=== PATIENT | male | born 1960 | race African-American/Black ===

== ENCOUNTER 2022-11-13 00:14 | Emergency (ER) | payer SELFPAY ==
[2022-11-13] VITALS (18 sets, daily range): BP systolic 101–123; BP diastolic 69–83; PULSE 59–73; RESP 13–25; TEMP 36.5; O2SAT 97–100
--- NOTE | ~2022-11-13 | XR_ITS ---
EXAMINATION: XR chest 2V DATE: 11/13/2022 02:16 INDICATION: Chest tightness and cough TECHNIQUE: Frontal and lateral views of the chest are obtained COMPARISON: None available FINDINGS: Cardiomegaly is noted. There are minimal airspace opacities of the right lung base. No pleu ral effusion or pneumothorax. Median sternotomy wires and mediastinal surgical clips are seen, likely from prior coronary artery bypass grafting. IMPRESSION: 1. Minimal right basilar airspace opacity, consistent with atelectasis versus pneumonia. 2. Cardiomegaly. Reviewed, dictated and finalized at location A. IMPRESSION: 1. Minimal right basilar airspace opacity, consistent with atelectasis versus p neumonia. 2. Cardiomegaly.
--- NOTE | 2022-11-13 01:44 | ECG_ITS ---
Measurements Intervals [place] Rate: 70 P: 51 OH: 245 QRS: 50 QRSD: 86 T: 105 QT: 412 QTc: 447 Interpretive Statements SINUS RHYTHM WITH FIRST DEGREE AV BLOCK RSR' IN V1 OR V2, PROBABLY NORMAL VARIANT LOW QRS VOLTAGE IN LIMB LEADS MINIMAL Q WAVES- INFERIOR LEADS BORDERLINE ST-T WAVE ABNORMALITY- HIGH LATERAL LEADS ABNORMAL ECG NO PREVIOUS ECG AVAILABLE FOR COMPARISON Electronically Signed On 11-13-2022 7:45:11 CDT by Allan Chamorro D.O.
[2022-11-13 02:08] LABS: Basophils Absolute Auto 0.1 K/mm3 (0.0-0.1); Basophils Percent Auto 0.5 % (0.2-1.2); Eosinophils Absolute Auto 0.6 K/mm3 (0-0.3); Eosinophils Percent Auto 6.1 % (0-4.4); Hematocrit 41.1 % (42.0-52.0); Hemoglobin 13.7 g/dL (14.0-18.0); Immature Granulocyte Absolute 0.05 K/mm3 (0.00-0.031); Immature Granulocyte Percent A 0.5 % (0-0.5); Lymphocytes Absolute Auto 2.16 K/mm3 (0.9-3.2); Lymphocytes Percent Auto 21.7 % (18.3-44.2); Mean Corpuscular HGB Conc 33.3 g/dl (32-36); Mean Corpuscular Hemoglobin 30.9 pg (26-34); Mean Corpuscular Volume 92.8 fl (80-100); Mean Platelet Volume 9.6 fl (7.4-10.4); Monocytes Absolute Auto 1.1 K/mm3 (0.1-0.6); Monocytes Percent Auto 10.6 % (2.6-8.5); Neutrophils Percent Auto 60.6 % (45.5-73.1); Platelet Count Result 216 k/mm3 (150-375); Red Blood Count 4.43 M/mm3 (4.6-6.20); Red Cell Distribution Width 13.6 % (11.5-14.5)
[2022-11-13 02:14] LABS: INR 1.1; Prothrombin Time 14.2 Seconds (11.1-14.7)
[2022-11-13 02:15] LABS: Partial Thromboplastin Time 35.6 SECONDS (22.3-36.8)
[2022-11-13] MEDS: BENZONATATE 100 MG CAPSULE 200 MG PO (02:24)
[2022-11-13] MEDS: ALBUTEROL SULFATE NEB 2.5 MG/3 ML INH INHALATION (02:50)
[2022-11-13] MEDS: IPRATROPIUM BR 0.02% INH SOLN 0.5 MG/2.5 ML VIAL INHALATION (02:51)
[2022-11-13 02:55] LABS: Influenza A QL RT-PCR Negative (Negative); Influenza B QL RT-PCR Negative (Negative); SARS-CoV-2 RNA PCR Negative
[2022-11-13 03:06] LABS: Alanine Aminotransferase 40 U/L (6-50); Albumin Level 3.8 g/dL (3.5-5.1); Alkaline Phosphatase 76 U/L (38-126); Anion Gap 6 mmol/L (8-16); Aspartate Amino Transferase 34 U/L (17-59); Bilirubin,Total 0.3 mg/dL (0.2-1.3); Blood Urea Nitrogen 22 mg/dL (9-20); Calcium 8.4 mg/dL (8.4-10.2); Carbon Dioxide 28 mmol/L (22-30); Chloride 102 mmol/L (98-107); Estimated CRCL calculation 82 ml/min; Estimated Glomerular Filt Rate > 60; Glucose 111 mg/dL (65-110); Potassium 3.9 mmol/L (3.4-5.0); Sodium 136 mmol/L (137-145)
[2022-11-13 03:18] LABS: NT Pro B Type Natriuretic Pept < 20 pg/mL (19.9-100); Troponin I < 0.012 ng/mL (0.000-0.034)
[2022-11-13 03:28] LABS: Strep Group A RT-PCR NOT DETECTED (Negative)
--- NOTE | 2022-11-13 03:48 | ED.GENADULT ---
HPI - General Adult General Chief complaint: Upper Respiratory Infection Stated complaint: cough, headache Time Seen by Provider: 11/13/22 02:01 History of Present Illness HPI narrative: Patient 62-year-old gentleman who presents the emergency department with chief complaint of cough. Patient reports that since yesterday he has had a cough that has been productive of sputum. Patient states been mostly clear patient reports that he has not been able to improve his symptoms with [id number] Coricidin HBP patient states that has had no fever patient reports no chest pain Related Data Allergies Allergy/AdvReac Type Severity Reaction Status Date / Time hydrochlorothiazide Allergy Rash Verified 11/13/22 01:42 Review of Systems Review of Systems: A 10 system review of systems was completed on the patient and is negative except for what is stated in the HPI. Nursing and ancillary documentation was reviewed. Exam Narrative: GENERAL: Well-appearing, well-nourished, and in no acute distress. HEAD: Normocephalic, atraumatic. EYES: PERRLA and EOMI. ENT: Nares clear, no rhinorrhea or epistaxis. Mucous membranes moist. NECK: Supple. CHEST: Clear to auscultation. No respiratory distress. HEART: Regular rate and rhythm. No murmur heard. Normal peripheral pulses. ABDOMEN: Soft, nontender, nondistended, normal active bowel sounds. EXTREMITIES: Normal range of motion. No edema. SKIN: Warm, dry, no rash. NEURO: No focal deficits. Alert and oriented x3. PSYCH: Normal mood and affect. Course Vital Signs Vital signs: Vital Signs Temperature 36.5 C 11/13/22 00:18 Pulse Rate 73 11/13/22 00:18 Respiratory Rate 22 H 11/13/22 00:18 Blood Pressure 123/74 11/13/22 00:18 Pulse Oximetry 100 11/13/22 00:18 Oxygen Delivery Room Air 11/13/22 00:18 Temperature 36.5 C 11/13/22 00:18 Pulse Rate 71 11/13/22 04:02 Respiratory Rate 20 11/13/22 04:02 Blood Pressure 116/75 11/13/22 04:02 Pulse Oximetry 100 11/13/22 04:00 Oxygen Delivery Room Air 11/13/22 00:18 Medical Decision Making MDM Narrative Medical decision making narrative: Differential diagnosis includes pneumonia, upper respiratory infection, COVID-19, influenza Chest x-ray showed no evidence of focal infiltrate EKG interpreted by me as sinus rhythm at rate of [address] elevation or ST depression Laboratory studies were obtained which showed a negative COVID-negative flu and negative strep Electrolytes are within normal limits CBC showed a white blood cell count of 10 with a hemoglobin of 13.7. Vital Signs Vital Signs: Vital Signs Temperature 36.5 C 11/13/22 00:18 Pulse Rate 73 11/13/22 00:18 Respiratory Rate 22 H 11/13/22 00:18 Blood Pressure 123/74 11/13/22 00:18 Pulse Oximetry 100 11/13/22 00:18 Oxygen Delivery Room Air 11/13/22 00:18 Temperature 36.5 C 11/13/22 00:18 Pulse Rate 71 11/13/22 04:02 Respiratory Rate 20 11/13/22 04:02 Blood Pressure 116/75 11/13/22 04:02 Pulse Oximetry 100 11/13/22 04:00 Oxygen Delivery Room Air 11/13/22 00:18 Lab Data 11/13/22 01:51 11/13/22 02:48 Labs: Lab Results 11/13/22 11/13/22 11/13/22 Range/Units 01:51 01:51 01:51 WBC 10.0 (4.5-10.0) K/mm3 RBC 4.43 L (4.6-6.20) M/mm3 Hgb 13.7 L (14.0-18.0) g/dL Hct 41.1 L (42.0-52.0) % MCV 92.8 (80-100) fl MCH 30.9 (26-34) pg MCHC 33.3 (32-36) g/dl RDW 13.6 (11.5-14.5) % Plt Count 216 (150-375) k/mm3 MPV 9.6 (7.4-10.4) fl Immature Gran % (Auto) 0.5 (0-0.5) % Neut % (Auto) 60.6 (45.5-73.1) % Lymph % (Auto) 21.7 (18.3-44.2) % [place] % (Auto) 10.6 H (2.6-8.5) % Eos % (Auto) 6.1 H (0-4.4) % Baso % (Auto) 0.5 (0.2-1.2) % Lymph # (Auto) 2.16 (0.9-3.2) K/mm3 [place] # (Auto) 1.1 H (0.1-0.6) K/mm3 Eos # (Auto) 0.6 H (0-0.3) K/mm3 Baso # (Auto) 0.1 (0.0-0.1) K/mm3 Abs Immat Gran
--- NOTE | 2022-11-13 03:59 | PC.NURSE ---
Patient reports he is feeling much better at this time.
== END 2022-11-13 04:29 | disposition home or self-care (01) ==
PROVIDERS: Emergency Provider Emergency Medicine; PCP Internal Medicine
DX: J06.9 Acute upper respiratory infection, unspecified (principal); Z20.822 Contact with and (suspected) exposure to COVID-19
CPT/HCPCS: 36415; 71046; 80053; 83880; 84484; 85025; 85610; 85730; 87636; 87651; 93005; 96374; 99284; A9270; J0131

== ENCOUNTER 2022-12-03 06:06 | Emergency (ER) | payer MEDICARE, MEDICAID, SELFPAY ==
--- NOTE | ~2022-12-03 | CT_ITS ---
EXAMINATION: CT abdomen pelvis w con INDICATION: Epigastric and right lower quadrant pain TECHNIQUE: Computed tomographic images of the abdomen and pelvis were obtained after the administrati on of 100 cc of Omnipaque 350 intravenous contrast. The dose-length product (DLP) was 1167.24 mGy-cm. Automated exposure control and iterative reconstruction technique were employed. COMPARISON: None available FINDINGS: Minimal dependent atelectasis is present in the lung bases. The heart size is normal. The l iver, spleen, pancreas, gallbladder, and adrenal glands are normal. Cysts of the kidneys measure up t o 2.6 cm on the left. There is a 2 mm nonobstructing stone of the right kidney. There is a 3 mm nonob structing stone of the left kidney. There is moderate wall thickening and edema of the stomach, parti cularly at the gastric antrum. There is calcified atherosclerosis of the aorta and many of the other arteries. No pathologically enlarged abdominal or pelvic lymph nodes are identified. No free intraper itoneal gas or evidence of bowel obstruction. IMPRESSION: 1. Moderate wall thickening and edema of the stomach, particularly at the gastric antrum, which may r eflect gastritis or peptic ulcer disease. Reviewed, dictated and finalized at location A. IMPRESSION: 1. Moderate wall thickening and edema of the stomach, particularly at the gastr ic antrum, which may reflect gastritis or peptic ulcer disease.
[2022-12-03 06:08] VITALS: BP 134/88; PULSE 77; RESP 16; TEMP 36.1; O2SAT 99
[2022-12-03 06:23] LABS: Basophils Percent Auto 0.2 % (0.2-1.2); Eosinophils Absolute Auto 0.7 K/mm3 (0-0.3); Eosinophils Percent Auto 5.8 % (0-4.4); Hematocrit 45.1 % (42.0-52.0); Hemoglobin 14.9 g/dL (14.0-18.0); Immature Granulocyte Absolute 0.06 K/mm3 (0.00-0.031); Immature Granulocyte Percent A 0.5 % (0-0.5); Lymphocytes Absolute Auto 1.26 K/mm3 (0.9-3.2); Lymphocytes Percent Auto 10.4 % (18.3-44.2); Mean Corpuscular Hemoglobin 31.1 pg (26-34); Mean Corpuscular Volume 94.2 fl (80-100); Mean Platelet Volume 9.1 fl (7.4-10.4); Monocytes Absolute Auto 0.7 K/mm3 (0.1-0.6); Monocytes Percent Auto 5.6 % (2.6-8.5); Neutrophils Absolute Auto 9.4 K/mm3 (1.3-6.7); Neutrophils Percent Auto 77.5 % (45.5-73.1); Platelet Count Result 278 k/mm3 (150-375); Red Blood Count 4.79 M/mm3 (4.6-6.20); Red Cell Distribution Width 13.9 % (11.5-14.5); White Blood Count 12.1 K/mm3 (4.5-10.0)
[2022-12-03 06:35] VITALS: BP 118/76; PULSE 96; RESP 18; O2SAT 100
[2022-12-03 07:00] LABS: Alanine Aminotransferase 32 U/L (6-50); Albumin Level 4.3 g/dL (3.5-5.1); Alkaline Phosphatase 98 U/L (38-126); Anion Gap 6 mmol/L (8-16); Aspartate Amino Transferase 32 U/L (17-59); Bilirubin,Total 0.8 mg/dL (0.2-1.3); Blood Urea Nitrogen 16 mg/dL (9-20); Calcium 8.9 mg/dL (8.4-10.2); Carbon Dioxide 29 mmol/L (22-30); Chloride 101 mmol/L (98-107); Estimated Glomerular Filt Rate > 60; Glucose 132 mg/dL (65-110); Lipase 154 U/L (23-300); Potassium 3.9 mmol/L (3.4-5.0); Sodium 136 mmol/L (137-145)
[2022-12-03] MEDS: SODIUM CHLORIDE 0.9% IV 1,000 ML 999 ML IV CONT (07:23)
[2022-12-03] MEDS: ONDANSETRON INJ 4 MG/2 ML VIAL IV PUSH (07:23)
[2022-12-03] MEDS: MORPHINE SULFATE (*CRX) 4 MG/ML INJ IV PUSH (07:23)
[2022-12-03 07:37] VITALS: BP 110/65; PULSE 92; RESP 16; O2SAT 97
[2022-12-03 08:22] LABS: Appearance Urine Clear (Clear); Bacteria Urine None Seen /hpf; Bilirubin Urine Negative (Negative); Blood Urine Negative (Negative); Color Urine Dark Yellow (Yellow); Glucose Urine UA Negative (Negative); Ketones Urine Negative (Negative); Leukocyte Esterase Ur Trace LEU/UL (Negative); Nitrate Urine Negative (Negative); Non Pathogenic Casts 0-2; Protein Urine Trace mg/dL (Negative); RBC Urine 0-2 /hpf (0-2); Squamous Epithelial Cell Urine None seen /hpf (Few); WBC Urine 0-5 /hpf; pH Urine 6.5 (5.0-9.0)
[2022-12-03 08:31] LABS: Add Urine Microscopic? YES
[2022-12-03] MEDS: BELLADONNA ALK/PHENOB ELIX 10 ML, MAG HYDROX/ALUMINUM HYD/SIMETH 30 ML, LIDOCAINE HCL 2... PO (11:41)
--- NOTE | 2022-12-03 11:53 | ED.ABDPAIN ---
HPI - Abdominal Pain General Chief Complaint: Abdominal Pain Stated Complaint: abdominal pain Time Seen by Provider: 12/03/22 07:00 History of Present Illness HPI narrative: Patient is a 62-year-old male who presents ER with lower abdominal pain. Cramping. It is associated with nausea. No diarrhea. No fevers chills or sweats. No known sick contacts. Reports most pain is in the right lower quadrant. No alleviating or aggravating factors. No urinary frequency urgency or dysuria. He has history of kidney stones but this is not similar. Related Data Allergies Allergy/AdvReac Type Severity Reaction Status Date / Time hydrochlorothiazide Allergy Rash Verified 12/03/22 06:06 Review of Systems Review of Systems: All systems reviewed & are unremarkable except as noted in HPI and below Constitutional: Constitutional: Denies chills and Denies fever(s) ENT: Denies nasal congestion and Denies sore throat Cardiovascular: Cardiovascular: Denies chest pain, Denies rapid heart rate and Denies radiating jaw, neck or arm pain Respiratory: Respiratory: Denies cough and Denies dyspnea Gastrointestinal: Gastrointestinal: Reports abdominal pain, Reports heartburn, Denies diarrhea, Reports nausea and Denies vomiting PMFSH Past Medical History Medical History (Updated 12/03/22 @ 14:00 by Mario Cook MD) Gout Hyperlipidemia Hypertension Exam Narrative: GENERAL: Uncomfortable-appearing, well-nourished, and in no acute distress. HEAD: Normocephalic, atraumatic. EYES: PERRL and EOMI. ENT: Mucous membranes moist. CHEST: Clear to auscultation. No respiratory distress. HEART: Regular rate and rhythm. Normal peripheral pulses. ABDOMEN: Soft, mild tenderness right lower quadrant, nondistended, normal active bowel sounds. EXTREMITIES: Normal range of motion. No edema. SKIN: Warm, dry, no rash. NEURO: NAlert and oriented x3. PSYCH: Normal mood and affect. Course Course Emergency Course: Imaging was significantly thickened stomach. Suspect gastritis versus peptic ulcer disease and I am in agreement with radiologist. Patient will be started on PPI twice daily. Patient verbalized understanding of the diagnosis and treatment plan. Vital Signs Vital signs: Vital Signs Temperature 97.0 F L 12/03/22 06:08 Pulse Rate 77 12/03/22 06:08 Respiratory Rate 16 12/03/22 06:08 Blood Pressure 134/88 12/03/22 06:08 Pulse Oximetry 99 12/03/22 06:08 Oxygen Delivery Room Air 12/03/22 06:08 Temperature 97.0 F L 12/03/22 06:08 Pulse Rate 64 12/03/22 12:19 Respiratory Rate 18 12/03/22 12:19 Blood Pressure 135/89 12/03/22 12:19 Pulse Oximetry 100 12/03/22 12:19 Oxygen Delivery Room Air 12/03/22 06:08 MDM - Abdominal Pain Lab Data 12/03/22 06:15 12/03/22 06:15 Labs: Lab Results 12/03/22 12/03/22 12/03/22 Range/Units 06:15 06:15 07:49 WBC 12.1 H (4.5-10.0) K/mm3 RBC 4.79 (4.6-6.20) M/mm3 Hgb 14.9 (14.0-18.0) g/dL Hct 45.1 (42.0-52.0) % MCV 94.2 (80-100) fl MCH 31.1 (26-34) pg MCHC 33.0 (32-36) g/dl RDW 13.9 (11.5-14.5) % Plt Count 278 (150-375) k/mm3 MPV 9.1 (7.4-10.4) fl Immature Gran % (Auto) 0.5 (0-0.5) % Neut % (Auto) 77.5 H (45.5-73.1) % Lymph % (Auto) 10.4 L (18.3-44.2) % [place] % (Auto) 5.6 (2.6-8.5) % Eos % (Auto) 5.8 H (0-4.4) % Baso % (Auto) 0.2 (0.2-1.2) % Lymph # (Auto) 1.26 (0.9-3.2) K/mm3 [place] # (Auto) 0.7 H (0.1-0.6) K/mm3 Eos # (Auto) 0.7 H (0-0.3) K/mm3 Baso # (Auto) 0.0 (0.0-0.1) K/mm3 Abs Immat Gran (auto) 0.06 H (0.00-0.031) K/mm3 Absolute Neuts (auto) 9.4 H (1.3-6.7) K/mm3 Absolute Nucleated RBC 0.0 (0.0-0.012) K/mm3 Nucleated RBC % 0.0 (0.0-0.2) % Sodium 136 L (137-145) mmol/L Potassium 3.9 (3.4-5.0) mmol/L Chloride 101 (98-107) mmol/L Carbon Dioxide 29 (22-30) mmol/L Anion Gap 6 L (8-16) m
[2022-12-03] MEDS: PANTOPRAZOLE SODIUM IV 40 MG VIAL IV PUSH (12:14)
[2022-12-03 12:19] VITALS: BP 135/89; PULSE 64; RESP 18; O2SAT 100
== END 2022-12-03 12:21 | disposition home or self-care (01) ==
PROVIDERS: Emergency Medicine; Emergency Provider Emergency Medicine; PCP Internal Medicine
DX: K29.70 Gastritis, unspecified, without bleeding (principal); E78.5 Hyperlipidemia, unspecified; I10 Essential (primary) hypertension; M10.9 Gout, unspecified
CPT/HCPCS: 36415; 74177; 80053; 81001; 83690; 85025; 96361; 96374; 96375; 99284; A9270; C9113; J2270; J2405; J7030; Q9967

== ENCOUNTER 2024-10-02 22:02 | Emergency (ER) | payer MEDICARE, MEDICAID, SELFPAY ==
--- NOTE | ~2024-10-02 | XR_ITS ---
HISTORY: left hand pain, gout flare COMPARISON: None TECHNIQUE: 3 views of the left hand were performed. FINDINGS: No acute fracture is identified. No periarticular osteopenia. Gullwing deformity is identified within the proximal interphalangeal joint spaces of the second, thir d, fourth and fifth digits. The remaining joint spaces are otherwise preserved. The carpal arcs are intact. Mild radiocarpal joint space narrowing with sclerosis of the distal radius is present. No significant soft tissue swelling. No radiopaque foreign body is identified. IMPRESSION: No acute fracture or dislocation within the left hand, as detailed above. No discrete findings to suggest gouty arthritis, with the exception of normal bone mineralization. Ho wever, not all patient's manifest the radiographic appearance until very late stages in the disease. Clinical and serologic correlation is recommended Reviewed, dictated and finalized at location A. UE WORKER IMPRESSION: No acute fracture or dislocation within the left hand, as detailed above. No discrete findings to suggest gouty arthritis, with the exception of normal b one mineralization. However, not all patient's manifest the radiographic appear ance until very late stages in the disease. Clinical and serologic correlation is recommended
--- NOTE | ~2024-10-02 | XR_ITS ---
HISTORY: right foot pain, gout flare COMPARISON: None TECHNIQUE: 3 views of the right foot were performed. FINDINGS: No acute fracture or dislocation is appreciated. Within the medial distal margin of the proximal phalanx of the great toe in the juxta-articular posit ion is a lytic bone lesion with an overhanging edge, findings suggestive of gouty arthritis. The base of the fifth metatarsal is intact. No calcaneal spur is noted. No significant soft tissue swelling is present. IMPRESSION: Findings suggestive of gouty arthritis within the right great toe, as detailed above. Reviewed, dictated and finalized at location A. H HEALER
--- OUTSIDE RECORDS SUMMARY | 2024-10-02 22:04 | XMS_ITS | Clinical Summary ---
Author Organization [facility] Address [address] [place] [address] Care Team Providers Care Cycle Consultant Name Role Phone Luiz Bennett MD Primary Care Provider [phone] Source Comments [facility],non-owned Affiliates and Associated Physician Practices is amultiple site organization consisting of ambulatory clinics and hospital sitesin [place], [place], [place] and [place]. This disclosure is being madepursuant to the Care Everywhere program and may not contain all information available regarding this patient. Last updated 18.[facility] Allergies Active Allergy Reactions Criticality Noted Date Comments Aminacrine Anaphylaxis,Other High 12/02/2010 Numbness of mouth cheek and arms Numbness of mouth cheek and arms Hydrochlorothiazide Swelling,Angioedema, Un known High 07/03/2013 Medications * Be aware that medications may not be up to date on this document. Alwaysverify current medications with the patient. Medication Sig Dispensed Refills Start Date End Date Status albuterol HFA (PROVENTIL;VENTOLIN;P ROAIR) 108 (90 Base) MCG/ACT inhaler INHALE 2 PUFFS BY MOUTH EVERY 4 HOURS NEEDED FOR WHEEZING 12/27/2017 Active aspirin (ASPIRIN) 81 MG chew tablet Active lisinopril (PRINIVIL; ZESTRIL) 10 MG tablet Take 10 mg by mouth 2 times daily Active Active Problems Problem Noted Date Diagnosed Date Hyperlipidemia 01/04/2018 Overweight 01/04/2018 Dyslipidemia 03/11/2014 Ischemic cardiomyopathy 11/13/2013 Overview (05/14/2020): Decrease in LV systolic function, with EF 31% in 11/29, followed by EF of 10% in October, Decrease in LV systolic function, with EF 31% in 11/29, followed by EF of 10% in October, Angina pectoris 10/26/2012 History of coronary artery bypass graft x 3 03/2013 Asthma 10/24/2012 Overview (05/14/2020): Since he was a kid, but 'didn't bother me for 29 years', until 2012. Since he was a kid, but 'didn't bother me for 29 years', until 2012. Benign essential hypertension 12/02/2010 Coronary atherosclerosis 12/02/2010 Overview (05/14/2020): Triple vessel coronary bypass surgery (although no operative report) in 2007; [place], [place]. Triple vessel coronary bypass surgery (although no operative report) in 2007; [place], [place]. Lumbago 12/02/2010 Obesity, unspecified 12/02/2010 Family History Medical History Relation Name Comments Asthma Neg Hx CVA Neg Hx Cancer - Breast Neg Hx Cancer - Other Neg Hx Cancer - Skin, Melanoma Neg Hx Cancer - Skin, Non Melanoma Neg Hx Eczema Neg Hx Hemophilia Neg Hx Psoriasis Neg Hx Social History Tobacco Use Types Packs/Day Years Used Date Smoking Tobacco: Some Days Cigarettes Smokeless Tobacco: Never Comments:1 pack every 10 day s Alcohol Use Standard Drinks/Week Comments Never 0 (1 standard drink = 0.6 oz pur e alcohol) AUDIT-C Answer Date Recorded Q1: How often do you have a drink containing alc ohol? Never 04/15/2020 Average Number of Drinks Not on file 020 Frequency of Binge Drinking Not on file 03/22 Sex and Gender Information Value Date Recorded Sex Assigned at Not on file Gender Identity Not on file Sexual Orientation Not on file Last Filed Vital Signs Vital Sign Reading Time Taken Comments Blood Pressure 104/84 05/18/2020 11:10 AM CDT Pulse 65 05/18/2020 11:10 AM CDT Temperature - - Respiratory Rate - - Oxygen Saturation - - Inhaled Oxygen Concentration - - Weight 113.9 kg (251 lb) 05/18/2020 8:39 AM CDT Height 175.3 cm (5' 9 ) 05/18/2020 8:39 AM CDT Body Mass Index 37.07 05/18/2020 8:39 AM CDT Plan of Treatment Health Maintenance Due Date Last Done Comments COLOGUARD (AGES 45-75) - COL ON CA SCREENING 1959 COLON MONITORING 1959 COLONOSCOPY - COLON CA SCREENING 1959 CT COLONOGRAPHY - COLON CA SCREENING 1959 Colorectal Cancer Screening 1959 FIT - COLON CA SCREENING 1959 FLEX SIG - COLON CA SCREENING 1959 MEDICARE AWV 12 MONTHS 1959 HIV SCREENING 1974 HEPATITIS C SCREENING 07/29/1977 DTAP/TDAP/TD VACCINES (1 - Tdap) 1978 PNEUMOCOCCAL VACCINE 50+ (1 of 2 - PCV) 1978 ZOSTER VACCINE (1 of 2) 2009 Respiratory Syncytial Virus (RSV) Vaccine Pt: or over 60 yrs (1 - Risk 60-74 years 1-dose series) 2019 SCREENING FOR DIABETES 05/18/2020 COVID-19 VACCINE (1 - 2023-2 5 season) 2024 INFLUENZA VACCINE (#1) 2024 0, 05/09/2018 AAA SCREENING 2024 DEPRESSION SCREENING 08/21/2024 HEPATITIS B VACCINE Aged Out No longe r eligible based on patient's age to complete this topic HIB VACCINE Aged Out No longer eligi ble based on patient's age to complete this topic HPV VACCINE Aged Out No longer eligi ble based on patient's age to complete this topic MENINGOCOCCAL (Group B) VACCINE Aged Out No longer eligible b ased on patient's age to complete this topic MENINGOCOCCAL VACCINE Aged Out No shayan ric eligible based on patient's age to complete this topic Care Teams Cycle Consultant Relationship Specialty Start Date End Date Luiz Bennett MD [facility] [address] Rose KATHLEEN [address] [place] [id number] PCP - General 04/15/20
--- OUTSIDE RECORDS SUMMARY | 2024-10-02 22:04 | XMS_ITS | Patient Health Record ---
Author Organization [facility] Address [address] [place], [place] [id number] Reason For Referral No Information Immunizations Vaccine Route Administration Date Status Comme nts Moderna 1st IM Intramuscular 10/17/2020 Administered Moderna 1st IM Intramuscular 12/29/2020 Administered Social History Sex Assigned At : Social History Observation Description Sex Assigned At Male Plan Of Treatment No Information Insurance Providers Payer Name Payer Address Payer Phone Subscriber Number Group Number Insured Name Patient Relationship to Insured Coverage Start Date Coverage End Date MEDICARE COMPLETE [address] [place] [address] [id number] George GONZALEZ III Self - patient is the insured
--- OUTSIDE RECORDS SUMMARY | 2024-10-02 22:04 | XMS_ITS | Encounter Summary ---
Author Organization [facility] Address [address] [place] [address] Care Team Providers Care Real Estate Director Name Role Phone Luiz Bennett MD Primary Care Provider [phone] Encounter Details Date Type Department Care Team (Late st Contact Info) Description 04/21/2020 Lab Requisition [facility] [address] [place] [address] Jazmyn Boss MD [address] [facility] [address] DEPT OF DERMATOLOGY [place], [place] [id number] Social History Tobacco Use Types Packs/Day Years [...] on file Sexual Orientation Not on file documented as of this encounter Plan of Treatment Not on file documented as of this encounter Procedures Procedure Name Priority Date/Time Associated Diagnosis Comments DERMPATH SLIDE CONSULT Routine 04/21/2020 12:00 AM CDT documented in this encounter Results * DERMPATH SLIDE CONSULT (04/21/2020 12:00 AM CDT) Case Report Dermatopathology Report Case: [id number] Authorizing Provider: Jazmyn Boss MD Collected: 04/21/2020 12:00 AM Ordering Location: [facility] Lab Received: 04/21/2020 03:57 PM Pathologist: Suha Morfin MD Specimen: Slide(s), Mid occipital scalp, OSC# [id number] 0 2:40 PM CDT DERMATOPATHOLOGY LABORATORY Final Diagnosis Specimen A. Slide(s), Mid occipital scalp, OSC# [id number]: SQUAMOUS CELL CARCINOMA, WELL DIFFERENTIATED (C44.42) PRESENT AT MARGIN 0 2:40 PM CDT DERMATOPATHOLOGY LABORATORY Clinical History Materials received from: [facility] [address] [place] [address], [place] [address] Received for Mohs [place] are 1 (H&E) slide(s) labeled [id number]. Atypical endophytic/verrucou s Squamous proliferation most consistent with the surface of a well differentiated Squamous cell carcinoma; extending to the deep margin. All slides returned. Appointment Date: 04/15/2020 Any additional sections, special stains or immunohistochemical stains performed by our laboratory will be kept here on file. 0 2:40 PM CDT DERMATOPATHOLOGY LABORATORY Microscopic Description Specimen A. Slide(s), Mid occipital scalp, OSC# [id number]: Arising in the epidermis and extending into the dermis there are endophytic lobules of keratinocytes showing evidence of premature cornification. The tumor is negative for CD34. Mib-1 reveals increased proliferation in the keratinocytes making up the tumor, and in some places extending up to the granular layer. This lesion is present at the base of the specimen. 0 2:40 PM CDT DERMATOPATHOLOGY LABORATORY Disclaimer An external and internal positive and negative controls are appropriate for the histochemical, immunohistochemical and immunofluorescence stain(s) in this case (if any), except where stated explicitly. The performance characteristics of the stain(s) cited in this report were developed and its performance characteristic determined by the Dermatopathology Laboratory at [facility], directed by Dr. Hadley Ohara. These tests need not be, and therefore are not, approved by the [place] Food and Drug Administration. The tests are used for clinical purposes. Billing Codes Specimen Charges Stain Charges 86842 1 [id number] 1 1 0 2:40 PM CDT DERMATOPATHOLOGY LABORATORY Embedded Images 0 2:40 PM CDT DERMATOPATHOLOGY LABORATORY Pathology/Cytolog y SLIDE / Unknown 04/21/2020 04/21/2020 3:57 PM CDT Jazmyn Boss MD LAB - PATHOLOGY/CYTO LOGY ORDERABLES DERMATOPATHOLOGY LABORATORY [facility] - Department of Dermatology [address], [address] [phone] documented in this encounter Visit Diagnoses Not on filedocumented in this encounter Care Teams Real Estate Director Relationship Specialty Start Date End Date Luiz Bennett MD [address] [place] [address] DR Rose [address] [address] PCP - General 04/15/20 documented as of this encounter
--- OUTSIDE RECORDS SUMMARY | 2024-10-02 22:04 | XMS_ITS | Referral Summary ---
Author Organization [facility] Clinical [facility] Address [address] [place] [id number] Care Team Providers Care Mechanical Drafter Name Role Phone Luiz Bennett MD Primary Care Provider [phone] Jazmyn Boss MD Unavailable [phone] Encounters Date Type Department Care Team Description 09/20/[address] [phone] Luiz Bennett MD URI 08/12/2024 11:54 AM WELL LOGGING CAPTAIN - 08/12/2024 3:50 PM [facility] Emergency [facility] Emergency Department [address] [place] [phone] Baljinder De Santiago MD Right foot pain (Primary Dx); Acute idiopathic gout of right foot Discharge Disposition: Discharge to home or self care 08/09/2024 Orders Only [address] [phone] Luiz Bennett MD Idiopathic gout, unspecified chronicity, unspecified site from Last 3 Months Allergies Active Allergy Reactions Criticality Noted Date Comments Aminacrine Anaphylaxis High 12/02/2010 Numbness of mouth cheek and arms Hydralazine Unknown 12/27/2020 Hydrochlorothiazide Unknown,Swelling Medium 07/03/2013 Medications ipratropium-albuterol (COMBIVENT RESPIMAT) 20-100 mcg/actuation inhalerIndications: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 Obstructive Pulmonary Disease with Bronchospasms INHALE 1 PUFF EVERY 4 TO 6 HOURS NEEDED 01/05/20 18 Active FLUARIX QUAD 7521-4717, PF, 60 mcg (15 mcg x 4)/0.5 mL syringe ADM 0.5ML IM UTD 0 05/09/20 18 Active aspirin-calcium carbonate 81 mg-300 mg calcium(777 mg) tablet Take by mouth 04/09 13 Active fluticasone propionate (FLOVENT HFA) 44 mcg/actuation inhaler Inhale Active ipratropium-albuterol (COMBIVENT RESPIMAT) 20-100 mcg/actuation inhaler Inhale 1 puff 4 times daily as needed 11/24/19 18 Active Colcrys 0.6 mg tabletIndications:Idiop athic gout, unspecified chronicity, unspecified site Take 1 tablet (0.6 mg total) by mouth 2 (two) times a day 20 tablet 08/18/20 22 Active albuterol HFA (PROVENTIL HFA,VENTOLIN HFA,PROAIR HFA) 90 mcg/actuation inhaler Inhale 2 puffs every 4 (four) hours as needed for wheezing or shortness of breath 90 g 1 09/12/19 24 Active guaiFENesin ER (MUCINEX) 600 mg 12 hr tabletIndications:Mild intermittent asthma with acute exacerbation,Acute non-recurrent pansinusitis,Nasal sinus congestion Take 2 tablets (1,200 mg total) by mouth 2 (two) times a day 09/13/19 24 Active fluticasone propionate (FLONASE) 50 mcg/actuation nasal sprayIndications:Acute non-recurrent pansinusitis,Nasal sinus congestion Administer 2 sprays into each nostril daily 09/13/19 24 Active furosemide (LASIX) 80 mg tabletIndications:Essen tial hypertension TAKE 1 TABLET(80 MG) BY MOUTH TWICE DAILY 180 tablet 2 09/24/19 24 Active metoprolol XL (TOPROL-XL) 50 mg extended release tabletIndications:Essen tial hypertension TAKE 1 TABLET(50 MG) BY MOUTH EVERY NIGHT 90 tablet 3 01/08/20 24 Active metoprolol XL (TOPROL-XL) 50 mg extended release tablet TAKE 1 TABLET(50 MG) BY MOUTH DAILY 90 tablet 2 01/08/20 24 Active aspirin 81 mg enteric coated tablet TAKE 1 TABLET BY MOUTH DAILY 30 tablet 02/05/20 24 Active traMADoL (ULTRAM) 50 mg tabletIndications:Chron ic pain syndrome Take 1-2 tablets (50-100 mg total) by mouth 2 (two) times a day as needed for pain (1 tablet for mild to moderate pain or 2 tablets for severe pain) 120 tablet 05/30/20 24 Active lisinopriL (PRINIVIL,ZESTRIL) 30 mg tabletIndications:Hyper tension, essential TAKE 1 TABLET(30 MG) BY MOUTH TWICE DAILY 180 tablet 1 06/24/20 24 Active atorvastatin (LIPITOR) 20 mg tabletIndications:Pure hypercholesterolemia Take 1 tablet (20 mg total) by mouth daily 90 tablet 1 06/24/20 24 Active allopurinoL (ZYLOPRIM) 300 mg tabletIndications:Idiop athic gout, unspecified chronicity, unspecified site Take 1 tablet (300 mg total) by mouth daily 90 tablet 2 08/09/20 24 Active predniSONE (DELTASONE) 10 mg tablet Take 6 tablets oral daily for 2 days... then 4 tablets daily for 2 days... then 3 tablets daily for 2 days... then 2 tablets daily for 2 days... then 1 tablet daily for 2 days then stop. 32 tablet 08/12/20 24 Active Active Problems Problem Noted Date Diagnosed Date Essential hypertension 05/08/2018 Hyperlipidemia 01/04/2018 Overweight 01/04/2018 Dyslipidemia 03/11/2014 Ischemic cardiomyopathy 11/13/2013 Overview (03/25/2019): Decrease in LV systolic function, with EF 31% in 11/29, followed by EF of 10% in October, Angina pectoris 10/26/2012 History of coronary artery bypass graft x 3 /03/2013 Asthma 10/24/2012 Overview (03/25/2019): Since he was a kid, but 'didn't bother me for 29 years', until 2012. ASCVD (arteriosclerotic cardiovascular disease) 12/02/2010 Overview (03/25/2019): Triple vessel coronary bypass surgery (although no operative report) in 2007; [facility], [place]. Lumbago 12/02/2010 Obesity, unspecified 12/02/2010 Benign essential hypertension 12/02/2010 Immunizations Name Administration Dates Next Due HPV, Unspecified 05/09/2018 Influenza, Quadrivalent, Rec ombinant, Egg Free, Preservative Free, Intramuscular 05/20/2022 Influenza, Quadrivalent, Spl it, Preservative Free, Intramuscular 05/27/2020,05/09/2018 Influenza, Trivalent, IM (MDV) 05/18/2021 Influenza, Trivalent, Recomb inant, Egg Free, Preservative Free, Antibiotic Free, IM (FLUBLOK) 05/30/2024 Influenza, Unspecified 05/27/2020 Moderna SARS-CoV-2 Monovalent Vaccination (12+ Y RS) 11/14/2020,10/17/2020 Social History Tobacco Use Types Packs/Day Years Used Date Smoking Tobacco: Some Days Smokeless Tobacco: Never Alcohol Use Standard Drinks/Week Comments No 0 (1 standard drink = 0.6 oz pur e alcohol) PHQ-2 Answer Date Recorded PHQ-2 Total Score (If total score is 3 or more points, staff should administer the PHQ-9) 0 05/30/2024 Personal Safety Answer Date Recorded Have you ever been in or are you currently in a harmful physical or emotional relationship or is someone making you feel afraid or unsafe? Denies 08/12/2024 Sex and Gender Information Value Date Recorded Sex Assigned at Not on file Legal Sex Male 11:30 PM WELL LOGGING CAPTAIN Gender Identity Not on file Sexual Orientation Not on file Last Filed Vital Signs Vital Sign Reading Time Taken Comments Blood Pressure 106/58 08/12/2024 3:45 PM WELL LOGGING CAPTAIN Pulse 68 08/12/2024 3:45 PM WELL LOGGING CAPTAIN Temperature 36.6 C (97.9 F) 08/12/2024 11:49 AM WELL LOGGING CAPTAIN Respiratory Rate 16 08/12/2024 3:45 PM WELL LOGGING CAPTAIN Oxygen Saturation 98% 08/12/2024 3:45 PM WELL LOGGING CAPTAIN Inhaled Oxygen Concentration - - Weight 99.3 kg (218 lb 14.4 oz) 05/30/2024 9:10 AM CDT Height 172.7 cm (5' 8 ) 05/30/2024 9:10 AM CDT Body Mass Index 33.28 05/30/2024 9:10 AM CDT Plan of Treatment Not on file Procedures Procedure Name Priority Date/Time Associated Diagnosis Comments URIC ACID, URINE, RANDOM STAT 08/12/2024 3:28 PM WELL LOGGING CAPTAIN XR FOOT RIGHT 3 OR MORE VIEWS ED 08/12/2024 1:10 PM WELL LOGGING CAPTAIN URIC ACID STAT 08/12/2024 12:34 PM WELL LOGGING CAPTAIN CRP (ACUTE PHASE) STAT 08/12/2024 12: 34 PM WELL LOGGING CAPTAIN ERYTHROCYTE SEDIMENTATION RATE STAT 08/12/2024 12:34 PM WELL LOGGING CAPTAIN EGFR STAT 08/12/2024 12:34 PM WELL LOGGING CAPTAIN DIFFERENTIAL AUTO STAT 08/12/2024 12: 34 PM WELL LOGGING CAPTAIN PHOSPHORUS Routine 08/12/2024 12:34 PM WELL LOGGING CAPTAIN COMPREHENSIVE METABOLIC PANEL STAT 08/12/2024 12:34 PM WELL LOGGING CAPTAIN CBC WITH AUTO DIFFERENTIAL STAT 08/12/2024 12:34 PM WELL LOGGING CAPTAIN PSA SCREEN Routine 05/30/2024 10:16 AM CDT Benign prostatic hyperplasia, unspecified whether lower urinary tract symptoms present CT ABDOMEN PELVIS W CONTRAST ED 12/12/2018 5:02 AM CDT from Last 3 Months or Most Recently Relevant to Health Maintenance Results * Uric acid, urine, random (08/12/2024 3:28 PM WELL LOGGING CAPTAIN) Uric acid, ur 10.6 mg/dL Comment: Interpretive Data No reference range established. Current interpretive data was last revised 2019. Urine 08/12/2024 3:28 PM WELL LOGGING CAPTAIN 08/12/2024 5:55 PM WELL LOGGING CAPTAIN us Irving Sr MD LAB URINE ORDERABLES Mary Ann rueda Result [facility] Department [place] [address] * XR Foot Right 3 or More Views (08/12/2024 1:10 PM WELL LOGGING CAPTAIN) Anatomical Region Laterality Modality Lower Extremities, Foot Right Computed Radiography 08/12/2024 1:26 PM WELL LOGGING CAPTAIN Impressions 08/12/2024 2:51 PM WELL LOGGING CAPTAIN FINDINGS/IMPRESSION:There is no acute fracture. The osseous structures are in anatomic alignment. There are degenerative changes at the 1st metatarsophalangeal joint, which may be seen in gout. Dictated by: Ferdinand Parekh M.D. The radiology attending physician has personally reviewed this study, and had reviewed and/or edited this written report and agrees with it. Electronically signed by: Jackson Russell M.D. Narrative 08/12/2024 2:51 PM WELL LOGGING CAPTAIN EXAMINATION: XR FOOT RIGHT 3 OR MORE VIEWS HISTORY: 64-year-old man with history of gout and right foot pain. Procedure Note Jackson Russell MD - 08/12/2024 EXAMINATION: XR FOOT RIGHT 3 OR MORE VIEWS HISTORY: 64-year-old man with history of gout and right foot pain. IMPRESSION: FINDINGS/IMPRESSION:There is no acute fracture. The osseous structures are in anatomic alignment. There are degenerative changes at the 1st metatarsophalangeal joint, which may be seen in gout. Dictated by: Ferdinand Parekh M.D. The radiology attending physician has personally reviewed this study, and had reviewed and/or edited this written report and agrees with it. Electronically signed by: Jackson Russell M.D. Irving Sr MD IMG XR PROCEDURES Final R esult * eGFR (08/12/2024 12:34 PM WELL LOGGING CAPTAIN) eGFR 63 >=60 mL/min/1. 73 m2 Comment: Interpretive Data Reference Interval Normal >/= 90 mL/min/1.73m2 Mildly decreased* 60 - 89 mL/min/1.73m2 Mildly to moderately decreased 45 - 59 mL/min/1.73m2 Moderately to severely decreased 30 - 44 mL/min/1.73m2 Severely decreased 15 - 29 mL/min/1.73m2 Kidney Failure < 15 mL/min/1.73m2 *Relative to young adult level Estimated glomerular filtration rate is determined by the 2020 CKD-EPI equation recommended by the National Kidney Foundation (A Unifying Approach to GFR Estimation: Recommendations of the NKF-ASK Task Force on Reassessing the Inclusion of Race in Diagnosing Kidney Disease, JASN 202). The CKD-EPI equation should not be used for patients with unstable renal function and has not been validated in children and those over 70. Current interpretive data was last reviewed 2021. Blood 08/12/2024 12:3 4 PM WELL LOGGING CAPTAIN 08/12/2024 12:48 PM WELL LOGGING CAPTAIN us Irving Sr MD LAB BLOOD ORDERABLES Mary Ann marybeth Result [facility] Department [place] [address] * (ABNORMAL) Differential, auto (08/12/2024 12:34 PM WELL LOGGING CAPTAIN) Neutrophil abs 8.1(H) 1.5 - 6.5 K/cumm Imm gran abs 0.1 0.0 - 0.1 K/cumm [facility] Lymphocyte abs 1.5 0.8 - 3.3 K/cumm [facility] Monocyte abs 1.1(H) 0.2 - 0.8 K/cumm [facility] Eosinophil abs 0.0 0.0 - 0.5 K/cumm [facility] Basophil abs 0.0 0.0 - 0.1 K/cumm [facility] Neutrophil pct 75.0 % [facility] Comment: Interpretive Data Percent cell count reference ranges are not reported, since discordance with absolute values may lead to misinterpretation of CBC data. Current Interpretive Data was last revised on 2017. Imm gran pct 0.6 % [facility] Comment: Interpretive Data Percent cell count reference ranges are not reported, since discordance with absolute values may lead to misinterpretation of CBC data. Current Interpretive Data was last revised on 2017. Lymphocyte pct 13.8 % [facility] Comment: Interpretive Data Percent cell count reference ranges are not reported, since discordance with absolute values may lead to misinterpretation of CBC data. Current Interpretive Data was last revised on 2017. Monocyte pct 9.9 % [facility] Comment: Interpretive Data Percent cell count reference ranges are not reported, since discordance with absolute values may lead to misinterpretation of CBC data. Current Interpretive Data was last revised on 2017. Eosinophil pct 0.4 % [facility] Comment: Interpretive Data Percent cell count reference ranges are not reported, since discordance with absolute values may lead to misinterpretation of CBC data. Current Interpretive Data was last revised on 2017. Basophil pct 0.3 % [facility] Comment: Interpretive Data Percent cell count reference ranges are not reported, since discordance with absolute values may lead to misinterpretation of CBC data. Current Interpretive Data was last revised on 2017. Blood 08/12/2024 12:3 4 PM WELL LOGGING CAPTAIN 08/12/2024 12:48 PM WELL LOGGING CAPTAIN Irving Sr MD LAB BLOOD ORDERABLES Mary Ann rueda Result [facility] Department [place] [address] * (ABNORMAL) CBC with auto differential (08/12/2024 12:34 PM WELL LOGGING CAPTAIN) WBC 10.8(H) 3.8 - 9.9 K/cumm Hgb 15.8 13.0 - 17.5 g/dL [facility] Hct 47.4 38.9 - 50.3 % [facility] Plt 274 150 - 400 K/cumm [facility] MPV 10.0 9.1 - 12.3 fL [facility] RBC 5.25 4.30 - 5.80 M/cumm [facility] MCV 90.3 81.3 - 96.4 fL [facility] MCH 30.1 27.1 - 33.3 pg [facility] MCHC 33.3 32.3 - 35.7 g/dL [facility] RDW CV 13.2 11.1 - 14.9 % [facility] RDW SD 43.7 35.7 - 48.1 fL [facility] NRBC abs 0.00 0.00 - 0.01 K/cumm [facility] Blood 08/12/2024 12:3 4 PM WELL LOGGING CAPTAIN 08/12/2024 12:48 PM WELL LOGGING CAPTAIN Result [facility] Irving Sr MD LAB BLOOD ORDERABLES Mary Ann l Result Performing Organization Address City/[facility] Co de Phone Number [facility] [employer] [place] [address] * (ABNORMAL) Erythrocyte sedimentation rate (08/12/2024 12:34 PM WELL LOGGING CAPTAIN) Erythrocyte sedimentation rate 22(H) 1 - 20 mm/hr Blood 08/12/2024 12:3 4 PM WELL LOGGING CAPTAIN 08/12/2024 12:54 PM WELL LOGGING CAPTAIN Result [facility] Irving Sr MD LAB BLOOD ORDERABLES Mary Ann l Result Performing Organization Address [facility] Co de Phone Number [facility] [employer] [place] [address] * (ABNORMAL) CRP (acute phase) (08/12/2024 12:34 PM WELL LOGGING CAPTAIN) CRP 39.0(H) <=10.0 mg/L Blood 08/12/2024 12:3 4 PM WELL LOGGING CAPTAIN 08/12/2024 12:48 PM WELL LOGGING CAPTAIN Result [facility] Irving Sr MD LAB BLOOD ORDERABLES Mary Ann l Result Performing Organization Address City/[facility]/ZIP Co de Phone Number [facility] [employer] [place] [address] * Uric acid (08/12/2024 12:34 PM WELL LOGGING CAPTAIN) [facility] Uric acid 6.0 3.0 - 8.0 mg/dL Blood 08/12/2024 12:3 4 PM WELL LOGGING CAPTAIN 08/12/2024 12:48 PM WELL LOGGING CAPTAIN Baljinder De Santiago MD LAB BLOOD ORDERABLES Fin al Result Performing Organization Address City/[facility]/ZIP Co de Phone Number [facility] Department [place] [address] * Phosphorus (08/12/2024 12:34 PM WELL LOGGING CAPTAIN) [facility] Phosphorus, pl 3.5 2.3 - 4.5 mg/dL Blood 08/12/2024 12:3 4 PM WELL LOGGING CAPTAIN 08/12/2024 12:48 PM WELL LOGGING CAPTAIN Irving Sr MD LAB BLOOD ORDERABLES Mary Ann l Result Performing Organization Address [facility] de Phone Number [facility] Department [place] [address] * Comprehensive metabolic panel (08/12/2024 12:34 PM WELL LOGGING CAPTAIN) [facility] Sodium 139 135 - 145 mmol/L Potassium, pl 4.3 3.3 - 4.9 mmol/L [facility] Comment:Hemolyzed; Potassium value may be falsely elevated by as much as 0.3-0.5 mmol/L. Suggest redraw and reanalysis. Chloride 101 97 - 110 mmol/L [facility] CO2 25 22 - 32 mmol/L [facility] Anion gap 13 2 - 15 mmol/L [facility] BUN 24 6 - 25 mg/dL [facility] Creatinine 1.27 0.80 - 1.30 mg/dL [facility] Glucose 95 70 - 199 mg/dL [facility] Comment: Interpretive Data Fasting glucose >/= 126 mg/dl is diagnostic for diabetes. Fasting is defined as no caloric intake for at least 8 hours. Fasting glucose between 100 mg/dl to 125 mg/dl is diagnostic of prediabetes. In a patient with classic symptoms of hyperglycemia or hyperglycemic crisis, a random glucose >/= 200 mg/dl is diagnostic for diabetes. In the absence of unequivocal hyperglycemia, results should be confirmed by repeat testing. The classification and Diagnosis of Diabetes Diabetes Care 2021; 46: S19-S40. Current interpretive data was last revised 2022. Calcium 9.6 8.5 - 10.3 mg/dL [facility] Bilirubin, total 0.5 0.1 - 1.2 mg/dL [facility] Protein, pl 8.4 6.5 - 8.5 g/dL [facility] Albumin 4.2 3.5 - 5.0 g/dL [facility] Alk phos 87 40 - 130 Units/L [facility] ALT 24 7 - 55 Units/L [facility] AST 28 10 - 50 Units/L [facility] Comment:Hemolyzed; result ma y be falsely elevated Blood 08/12/2024 12:3 4 PM WELL LOGGING CAPTAIN 08/12/2024 12:48 PM WELL LOGGING CAPTAIN us Irving Sr MD LAB BLOOD ORDERABLES Mary Ann rueda Result [facility] Department [place] [address] * PSA screen (05/30/2024 10:16 AM CDT) PSA-Total 3.75 <=5.40 ng/mL Comment: Interpretive Data AGE SEX REFERENCE INTERVAL 0 minutes-150 years Female None 0 minutes-49 years Male None 50-59 years Male 0-3.90 60-69 years Male 0-5.40 70-79 years Male 0-6.20 80-150 years Male 0-6.20 The [employer] PSA Total assay procedure was used. Results from different manufacturers or methods may not be comparable. Serial testing should be performed using the same method. Current interpretive data last revised 21. Blood 05/30/2024 10:1 6 AM CDT 05/30/2024 1:53 PM CDT us Luiz Bennett MD LAB BLOOD ORDERABLES Final R esult [facility] Department [place] [address] * CT Abdomen Pelvis W Contrast (12/12/2018 5:02 AM CDT) Anatomical Region Laterality Modality Body N/A Computed Tomogra phy 12/12/2018 7:50 AM CDT Impressions 12/12/2018 7:57 AM CDT 1. Thickened wall of the duodenum, suggesting duodenitis. 2. Small renal cysts. 3. Aortic atherosclerosis. 4. Mild enlargement of the prostate gland. A preliminary report was provided by [facility]. Electronically signed by: Carlos Dang M.D. Narrative 12/12/2018 7:57 AM CDT RESULT: HISTORY: Upper abdominal pain. EXAMINATION: CT ABDOMEN PELVIS W CONTRAST DATE: 12/12/2018 4:45 AM COMPARISON: None TECHNIQUE: CT of the abdomen and pelvis was performed following the intravenous administration of 95 mL Optiray 350. Coronal and sagittal reconstructions were obtained. FINDINGS: Scans through the lung bases are unremarkable. The heart size is normal. No evidence of a pleural effusion. The liver, gallbladder, pancreas and spleen appear normal. There is mild thickening of the wall of the duodenum and there is mild adjacent fat stranding. Findings are consistent with duodenitis. No evidence of free air or free fluid in the abdomen. There is a small cyst in each kidney. The kidneys and adrenal glands otherwise appear normal. No evidence of retroperitoneal adenopathy. There are atherosclerotic changes in the abdomen, aorta. The appendix is normal. No evidence of bowel obstruction. The urinary bladder is normal. There is mild enlargement of the prostate gland. No significant bony abnormality is seen. Procedure Note Carlos Dang MD - 12/12/2018 RESULT: HISTORY: Upper abdominal pain. EXAMINATION: CT ABDOMEN PELVIS W CONTRAST DATE: 12/12/2018 4:45 AM COMPARISON: None TECHNIQUE: CT of the abdomen and pelvis was performed following the intravenous administration of 95 mL Optiray 350. Coronal and sagittal reconstructions were obtained. FINDINGS: Scans through the lung bases are unremarkable. The heart size is normal. No evidence of a pleural effusion. The liver, gallbladder, pancreas and spleen appear normal. There is mild thickening of the wall of the duodenum and there is mild adjacent fat stranding. Findings are consistent with duodenitis. No evidence of free air or free fluid in the abdomen. There is a small cyst in each kidney. The kidneys and adrenal glands otherwise appear normal. No evidence of retroperitoneal adenopathy. There are atherosclerotic changes in the abdomen, aorta. The appendix is normal. No evidence of bowel obstruction. The urinary bladder is normal. There is mild enlargement of the prostate gland. No significant bony abnormality is seen. IMPRESSION: 1. Thickened wall of the duodenum, suggesting duodenitis. 2. Small renal cysts. 3. Aortic atherosclerosis. 4. Mild enlargement of the prostate gland. A preliminary report was provided by [facility]. Electronically signed by: Carlos Dang M.D. Connor Tripp MD IMG CT PROCEDURES Final Res ult from Last 3 Months or Most Recently Relevant to Health Maintenance Insurance [place] [facility] MEDIC[facility] Address: [address] [address] [place] [address] MEDICARE [facility] Address: [address] [address] [place] [address] [employer] MEDICARE GOLD [facility] AETNA MEDICARE GOLD [employer] AETNA MEDICARE GOLD Care Teams Mechanical Drafter Relationship Specialty Start Date End Date Luiz Bennett MD [facility] [place] [address] PCP - General 01/04/18 Jazmyn Boss MD [address] [place] [address] Dermatology 08/23/22
--- OUTSIDE RECORDS SUMMARY | 2024-10-02 22:04 | XMS_ITS | Clinical Summary ---
Author Organization [facility] Address [address] [place] [address] Care Team Providers Care Perinatal Tech Name Role Phone Unavailable Primary Care Provider Unavailabl e Allergies Active Allergy Reactions Criticality Noted Date Comments Hydrochlorothiazide Rash Low 09/13/2024 Medications allopurinoL (ZYLOPRIM) 300 mg tablet 4 Active atorvastatin (LIPITOR) 20 mg tablet 4 Active lisinopriL (PRINIVIL) 30 mg tablet 4 Active furosemide (LASIX) 20 mg tablet Take 20 mg by mouth daily. Active predniSONE (DELTASONE) 20 mg tabletIndicatio ns:Injury of right knee, initial encounter Take 3 tablets once daily for 3 days, then 2 tablets once daily for 3 days, then 1 tablet once daily for 3 days. Take with food. Do not abruptly stop this medication. 18 Tablet 5 09/13/19 25 Discontinue d(Alternate therapy prescribed) predniSONE (DELTASONE) 20 mg tabletIndicatio ns:Injury of right knee, initial encounter Take 3 Tablets (60 mg) by mouth daily for 3 days, THEN 2 Tablets (40 mg) daily for 3 days, THEN 1 Tablet (20 mg) daily for 3 days, take with food and do not stop taking abruptly. 18 Tablet 09/13/2024 11:17 AM HANDLE AND VENT MACHINE OPERATOR 5 09/22/19 25 Hospital, Clinic, or Other Facility Administered Medication Ordered Dose Route Frequency Start Date End Date Status triamcinolone acetonide (KENALOG-40) injectable suspension 40 mgIndications:Injur y of right knee, initial encounter 40 mg Intra-arTIC u ONE TIME ONLY 09/13/2024 09/13/2024 Ended Active Problems No known active problems Encounters Date Type Department Care Team Description 09/18/2024 External Device Data [facility] ABSTRACTION Provider, Abstract 09/17/2024 External Device Data [facility] ABSTRACTION Provider, Abstract 09/17/2024 External Device Data [facility] ABSTRACTION Provider, Abstract 09/13/2024 9:50 AM HANDLE AND VENT MACHINE OPERATOR Ancillary Procedure [facility] Orthopedic Surgery at the [facility] [address] [place] [address] Nallely Johnson PA Injury of right knee, initial encounter 09/13/2024 9:30 AM HANDLE AND VENT MACHINE OPERATOR Office Visit [facility] Orthopedic Surgery at the [place] [address] [place] [address] Nallely Johnson PA Other secondary acute gout of right knee (Primary Dx); Injury of right knee, initial encounter; Knee effusion, right from Last 3 Months Social History Tobacco Use Types Packs/Day Years Used Date Smoking Tobacco: Never Assessed Sex and Gender Information Value Date Recorded Sex Assigned at Not on file Legal Sex Male 8:48 AM HANDLE AND VENT MACHINE OPERATOR Gender Identity Not on file Sexual Orientation Not on file Plan of Treatment Health Maintenance Due Date Last Done Comments Pre-Diabetes and Diabetes Screening 1959 DTAP/TDAP/TD VACCINES (1 - Tdap) 1978 PNEUMOCOCCAL VACCINE 65+ YEA RS (1 of 2 - PCV) 1978 COLORECTAL SCREENING 2004 Colorectal Cancer Screening 2004 FIT-DNA Q 3 years 2004 FIT/FOBT Q 1 year 2004 Flex Sig/CT Colonography Q 5 years 2004 ZOSTER VACCINE (1 of 2) 2009 RSV VACCINE (60+ or ) (1 - Risk 60-74 years 1-dose series) 2019 COVID-19 Vaccine (6 - 2023-2 5 season) 2024 01/07/2022, 06/23/2021, 12/29/2020, Additional history exists Preventative Visit- Commercial 08/21/2024 06/25/2019 INFLUENZA VACCINE Completed 05/30/2024, , 05/18/2021, Additional history exists Procedures Procedure Name Priority Date/Time Associated Diagnosis Comments XR KNEE 4+ VW RIGHT Routine 09/13/2024 1 0:07 AM HANDLE AND VENT MACHINE OPERATOR Injury of right knee, initial encounter ME ARTHROCENTESIS ASPIR&/INJ MAJOR JT/BURSA W/O US Routine 09/13/2024 9:30 AM HANDLE AND VENT MACHINE OPERATOR Other secondary acute gout of right knee Knee effusion, right from Last 3 Months Results * XR KNEE 4+ VW RIGHT (09/13/2024 10:07 AM HANDLE AND VENT MACHINE OPERATOR) Anatomical Region Laterality Modality Lower Extremity Computed Radiogr aphy 09/13/2024 10:0 7 AM HANDLE AND VENT MACHINE OPERATOR Impressions 09/13/2024 2:08 PM HANDLE AND VENT MACHINE OPERATOR IMPRESSION: 1. Right knee joint effusion. No fracture identified. DICTATION LOCATION: Location 4 Narrative 09/13/2024 2:08 PM HANDLE AND VENT MACHINE OPERATOR EXAMINATION: XR KNEE 4+ VW RIGHT HISTORY: See Diagnosis. Injury of right knee, initial encounter FINDINGS: No prior study is available for comparison at the time of this dictation. Alignment is normal. No acute fractures identified. There is a small right knee joint effusion. Procedure Note Emilie Ortiz MD - 09/13/2024 EXAMINATION: XR KNEE 4+ VW RIGHT HISTORY: See Diagnosis. Injury of right knee, initial encounter FINDINGS: No prior study is available for comparison at the time of this dictation. Alignment is normal. No acute fractures identified. There is a small right knee joint effusion. IMPRESSION: 1. Right knee joint effusion. No fracture identified. DICTATION LOCATION: Location 4 Nallely BAUER DIAGNOSTIC IMAGING ORDERABLES Final Result * ME ARTHROCENTESIS ASPIR&/INJ MAJOR JT/BURSA W/O US (09/13/2024 9:30 AM HANDLE AND VENT MACHINE OPERATOR) Narrative Nallely Johnson PA - 09/13/2024 9:30 AM HANDLE AND VENT MACHINE OPERATOR Nallely Johnson PA 09/13/2024 10:36 AM Large Joint Drain/Inject Date/Time: 09/13/2024 9:30 AM Authorized by: Nallely Johnson PA Performed by: Nallely Johnson PA Consent given by: patient Site marked: site marked Timeout: Immediately prior to procedure a time out was called to verify the correct patient, procedure, equipment, software support representative and site/side marked as required Supporting Documentation Indications: pain Procedure Details Location: knee - R knee Preparation: Patient was prepped and draped in the usual sterile fashion Needle size: 18 G Approach: superior Triamcinolone amount: 40 mg Aspirate amount: 30 mL Aspirate: cloudy and yellow Patient tolerance: patient tolerated the procedure well with no immediate complications Nallely BAUER PROCEDURE/MINOR SURGICAL KAYLEEN JULES Final Result from Last 3 Months Insurance [employer] HMO RX [employer] (INTERNAL) [facility] [employer] RX [employer] Medicare Part D
--- OUTSIDE RECORDS SUMMARY | 2024-10-02 22:04 | XMS_ITS | Patient Health Summary ---
Author Organization [facility] Address [address] [place] [address] Care Team Providers Care Other Spatial Scientist Name Role Phone Luiz Bennett MD Primary Care Provider [phone] Note from [facility],non-owned Affiliates and Associated Physician Practices is amultiple site organization consisting of ambulatory clinics and hospital sitesin [place], [place], [place] and [place]. This disclosure is being madepursuant to the Care Everywhere program and may not contain all information available regarding this patient. Last updated 18.[facility] Allergies * Aminacrine(Anaphylaxis,Other) -High Criticality * Hydrochlorothiazide(Swelling,Angioedema,Unknown) -High Criticality Medications * Be aware that medications may not be up to date on this document. Alwaysverify current medications with the patient. * albuterol HFA (PROVENTIL;VENTOLIN;PROAIR) 108 (90 Base) MCG/ACT inhaler (Started 12/27/2017) INHALE 2 PUFFS BY MOUTH EVERY 4 HOURS NEEDED FOR WHEEZING * aspirin (ASPIRIN) 81 MG chew tablet * lisinopril (PRINIVIL; ZESTRIL) 10 MG tablet Take 10 mg by mouth 2 times daily Active Problems Problem Noted Date Diagnosed Date Hyperlipidemia 01/04/2018 Overweight 01/04/2018 Dyslipidemia 03/11/2014 Ischemic cardiomyopathy 11/13/2013 Angina pectoris 10/26/2012 History of coronary artery bypass graft x 3 /0 03/2013 Asthma 10/24/2012 Benign essential hypertension 12/02/2010 Coronary atherosclerosis 12/02/2010 Lumbago 12/02/2010 Obesity, unspecified 12/02/2010 Social History Tobacco Use Types Packs/Day Years [...] Mass Index 37.07 05/18/2020 8:39 AM CDT Procedures * SKIN TEST PPD - POINT OF CARE(Performed 09/03/2020) Performed for Screening examination for pulmonary tuberculosis * [place] [facility] MOHS MG TQ H/N/H/F/G 1ST STAG 5 BLOC(Performed 05/18/2020) Performed for Squamous cell carcinoma of scalp * TN REPR CMPL WND SCALP,EXTR 2.6-7.5(Performed 05/18/2020) Performed for Squamous cell carcinoma of scalp * DERMPATH SLIDE CONSULT(Performed 04/21/2020) Results * SKIN TEST PPD - POINT OF CARE (09/03/2020 9:15 AM REINFORCED STEEL PLACING SUPERVISOR) PPD negative [facility] Comment:no induration Other MISCELLANEOUS SAMPLE S / Unknown 09/03/2020 9:15 AM REINFORCED STEEL PLACING SUPERVISOR Kate Benitez ANALOG DEVICE DESIGNER-MUTUAL FUNDS AGENT LAB - POINT O F CARE ORDERABLES [facility] [address] [phone] * TN REPR CMPL WND SCALP,EXTR 2.6-7.5, [place] [facility] MOHS MG TQ H/N/H/F/G 1ST STAG 5 BLOC (05/18/2020 4:06 PM CDT) Narrative Jazmyn Boss MD - 05/18/2020 4:06 PM CDT Jazmyn Boss MD 05/19/2020 4:51 PM Date of Service: 05/18/2020 Surgery: Mohs micrographic surgery Indication: Tumor location Repair Type: complex Repair Size: 3.3cm Suture Material: monocryl 4-0;stefano Tumor Type: Squamous cell carcinoma Location: mid occipital scalp Derm-Path PreOp Size: 1.0x1.1 cm. PostOp Size: 1.4x1.5 cm. Mohs Level of Defect: fat Procedure: The patient was placed supine on the operating table. The cancer was identified, outlined with a marker, and verified by the patient. The entire surgical field was prepped with Hibiclens. The surgical site was anesthetized using Lidocaine 1% with epinephrine 1:100,000 buffered with sodium bicarbonate 8.4% in a 1:10 ratio. The area of clinically apparent tumor was debulked with 2mm curette. The layer of tissue was then surgically excised using a #15 blade and was then transferred onto a specimen sheet maintaining the orientation of the specimen. Hemostasis was obtained using monopolar electrodessication. The wound site was then covered with a dressing while the tissue samples were processed for examination. The excised tissue was transported to the [facility] histology laboratory maintaining the tissue orientation. The tissue specimen was relaxed so that the entire surgical margin was in a a single horizontal plane for sectioning andinked for precise mapping. A precise reference map was drawn to reflect the sectioning of the specimen, colored inking of the margins, and orientation on the patient. The tissue was processed using horizontal sectioning ofthe base and continuous peripheral margins. The histopathologic sections were reviewed in conjunction with the reference map. Total blocks: 1 Total slides: 3 No additional tumor was identified on microscopic examination, therefore Mohs surgery was complete. Reconstruction: Complex Closure Primary Surgeon : Gera Geothermal Installer Surgeon : The patient was taken to the operative suite and placed seated on the operating room table. The defect was identified. Appropriate markings were made with a marking pen to plan the repair. The area was infiltrated with Lidocaine 1% with epinephrine 1:100,000 buffered with sodium bicarbonate 8.4% in a 1:10 ratio and prepped with Hibclens and draped with sterile towels. The wound was debeveled and undermined widely the width of the defect bilaterally. Cones were excised within relaxed skin tension lines on both sides of the defect. Hemostasis was obtained using monopolar electrodessication. The wound edges were then approximated additional buried sutures were placed in a similar fashion where needed. Percutaneous sutures were carefully placed for maximum eversion and meticulous approximation. Repair Size: 3.3 cm Sutures Used: 4-0 Monocry; stefano The wound was cleansed with saline and ointment was applied along the wound surface. A sterile pressure dressing was applied. Wound care instructions were given verbally and in writing. The patient left the operating suite in stable condition. Patient was informed that additional refinement of the resulting surgical scar may be used as a second stage of this reconstruction. The Attending surgeon was present for the entire procedure and always immediately available. Frances Ortiz MA I have reviewed the note, edited it as necessary and performed the entire procedure. Jazmyn Boss MD Electroformer Jazmyn Boss MD PROCEDURE/MINOR SURG ICAL ORDERABLES * DERMPATH SLIDE CONSULT (04/21/2020 12:00 AM CDT) Case Report Dermatopathology Report Case: [id number] Authorizing Provider: Jazmyn Boss MD Collected: 04/21/2020 12:00 AM Ordering Location: [facility] DermPath Lab Received: 04/21/2020 03:57 PM Pathologist: Suha Morfin MD Specimen: Slide(s), Mid occipital scalp, OSC# [id number] 0 2:40 PM CDT DERMATOPATHOLOGY LABORATORY Final Diagnosis Specimen A. Slide(s), Mid occipital scalp, OSC# [id number]: SQUAMOUS CELL CARCINOMA, WELL DIFFERENTIATED (C44.42) PRESENT AT MARGIN 0 2:40 PM CDT DERMATOPATHOLOGY LABORATORY Clinical History Materials received from: [employer] [address] [place] [address] Received for Mohs [place] are 1 (H&E) slide(s) labeled [id number]. Atypical endophytic/verrucou s Squamous proliferation most consistent with the surface of a well differentiated Squamous cell carcinoma; extending to the deep margin. All slides returned. Appointment Date: 04/15/2020 Any additional sections, special stains or immunohistochemical stains performed by our laboratory will be kept here on file. 0 2:40 PM CDT DERMATOPATHOLOGY LABORATORY Microscopic Description Specimen A. Slide(s), Mid occipital scalp, OSC# [id number]: Arising in the epidermis and extending into [...] characteristic determined by the Dermatopathology Laboratory at [facility], directed by Dr. Hadley Ohara. These tests need not be, and therefore are not, approved by the [place] Food and Drug Administration. The tests are used for clinical purposes. Billing Codes Specimen Charges Stain Charges 24416 1 [id number] 1 1 0 2:40 PM CDT DERMATOPATHOLOGY LABORATORY Embedded Images 0 2:40 PM CDT DERMATOPATHOLOGY LABORATORY Pathology/Cytolog y SLIDE / Unknown 04/21/2020 04/21/2020 3:57 PM CDT Jazmyn Boss MD LAB - PATHOLOGY/CYTO LOGY ORDERABLES DERMATOPATHOLOGY LABORATORY [facility] - Department of Dermatology [place] [id number] [facility], [address] [phone] Care Teams Other Spatial Scientist Relationship Specialty Start Date End Date Luiz Bennett MD [facility] [address] [address] [place] [facility] [address] [place] [id number] PCP - General 04/15/20
--- OUTSIDE RECORDS SUMMARY | 2024-10-02 22:04 | XMS_ITS | Clinical Summary ---
Author Organization [facility] Address [address] [place] [address] Care Team Providers Care Manager Of Marketing Name Role Phone Luiz Bennett MD Primary Care Provider [phone] Jazmyn Boss MD Unavailable [phone] Allergies Active Allergy Reactions Criticality Noted Date Comments Aminacrine Anaphylaxis High 12/02/2010 Numbness of mouth cheek and arms Hydralazine Unknown 12/27/2020 Hydrochlorothiazide Unknown,Swelling Medium 07/03/2013 Medications ipratropium-albuterol (COMBIVENT RESPIMAT) 20-100 mcg/actuation inhalerIndications:Group Manager garry Obstructive Pulmonary Disease with Bronchospasms INHALE 1 PUFF EVERY 4 TO 6 HOURS NEEDED 01/05/20 18 Active FLUARIX QUAD [id number], PF, 60 mcg (15 mcg x 4)/0.5 [...] graft x 3 03/2013 Asthma 10/24/2012 Overview (03/25/2019): Since he was a kid, but 'didn't bother me for 29 years', until 2012. ASCVD (arteriosclerotic cardiovascular disease) 12/02/2010 Overview (03/25/2019): Triple vessel coronary bypass surgery (although no operative report) in 2007; [facility], [place], [place]. Lumbago 12/02/2010 Obesity, unspecified 12/02/2010 Benign essential hypertension 12/02/2010 Encounters Date Type Department Care Team Description 09/20/[address] [place] [address] Luiz Bennett MD URI 08/12/2024 11:54 AM CHEMICAL RECOVERY OPERATOR - 08/12/2024 3:50 PM CHEMICAL RECOVERY OPERATOR Emergency [facility] Emergency Department [address] [place] [address] Baljinder De Santiago MD Right foot pain (Primary Dx); Acute idiopathic gout of right foot Discharge Disposition: Discharge to home or self care 08/09/2024 Orders Only [address] [place] [address] Luiz Bennett MD Idiopathic gout, unspecified chronicity, unspecified site from Last 3 Months Immunizations Name Administration Dates Next Due HPV, Unspecified 05/09/2018 Influenza, Quadrivalent, Rec ombinant, Egg Free, Preservative Free, Intramuscular 05/20/2022 Influenza, Quadrivalent, Spl it, Preservative Free, Intramuscular 05/27/2020,05/09/2018 Influenza, Trivalent, IM (MDV) 05/18/2021 Influenza, Trivalent, Recomb inant, Egg Free, Preservative Free, Antibiotic Free, IM (FLUBLOK) 05/30/2024 Influenza, Unspecified 05/27/2020 Moderna SARS-CoV-2 Monovalent Vaccination (12+ Y RS) 11/14/2020,10/17/2020 Surgical History Surgery Date Site/Laterality Comments MA CORONARY ARTERY BYPASS 1 CORONARY VENOUS GRAFT CABG - (Added by TW Conv) MA EXPLORATORY LAPAROTOMY CELIOTOMY W/WO BIOPSY SPX Exploratory Laparotomy - (Added by Conv) Medical History Medical History Date Comments Hypertension Hyperlipidemia CAD (coronary artery disease) CHF (congestive heart failure) (CMS/HCC) (HCC) Gout Family History Medical History Relation Name Comments Diabetes Sister Family history of diabetes mellitus - (Added by TW Conv) Relation Name Status Comments Sister Social History Tobacco Use Types Packs/Day Years [...] on file Legal Sex Male 11:30 PM CHEMICAL RECOVERY OPERATOR Gender Identity Not on file Sexual Orientation Not on file Obstetrics History Last Filed Vital Signs Vital Sign Reading Time Taken Comments Blood Pressure 106/58 08/12/2024 3:45 PM CHEMICAL RECOVERY OPERATOR Pulse 68 08/12/2024 3:45 PM CHEMICAL RECOVERY OPERATOR Temperature 36.6 C (97.9 F) 08/12/2024 11:49 AM CHEMICAL RECOVERY OPERATOR Respiratory Rate 16 08/12/2024 3:45 PM CHEMICAL RECOVERY OPERATOR Oxygen Saturation 98% 08/12/2024 3:45 PM CHEMICAL RECOVERY OPERATOR Inhaled Oxygen Concentration - - Weight 99.3 kg (218 lb 14.4 oz) 05/30/2024 9:10 AM CDT Height 172.7 cm (5' 8 ) 05/30/2024 9:10 AM CDT Body Mass Index 33.28 05/30/2024 9:10 AM CDT Plan of Treatment Health Maintenance Due Date Last Done Comments Colon Cancer Screening-Colonoscopy 1959 Hepatitis C Screening 1960 Pneumococcal vaccine 65+ (1 of 2 - PCV) 1965 DTaP/Tdap/Td Vaccine (1 - Tdap) 1970 Hepatitis B Screening 1977 Zoster Vaccine (1 of 2) 2009 Covid-19 Vaccine (4 - 2023-2 5 season) 2024 12/29/2020, 11/14/2020, 10/17/2020 Abdominal Aortic Aneurysm (A AA) Screen 2024 12/12/2018, 06/13/2016 Depression Screening 05/30/2025 05/30/2024 Fall Risk Assessment 05/30/2025 05/30/2024 Well Visit 65+ 05/30/2025 05/30/2024, 06/25/2019 Prostate Cancer Screening-PSA 05/30/2026, 12/31/2019, 06/25/2019, Additional history exists Influenza Vaccine Completed 05/30/2024, , 05/18/2021, Additional history exists Procedures Procedure Name Priority Date/Time Associated Diagnosis Comments URIC ACID, URINE, RANDOM STAT 08/12/2024 3:28 PM CHEMICAL RECOVERY OPERATOR XR FOOT RIGHT 3 OR MORE VIEWS ED 08/12/2024 1:10 PM CHEMICAL RECOVERY OPERATOR URIC ACID STAT 08/12/2024 12:34 PM CHEMICAL RECOVERY OPERATOR CRP (ACUTE PHASE) STAT 08/12/2024 12: 34 PM CHEMICAL RECOVERY OPERATOR ERYTHROCYTE SEDIMENTATION RATE STAT 08/12/2024 12:34 PM CHEMICAL RECOVERY OPERATOR EGFR STAT 08/12/2024 12:34 PM CHEMICAL RECOVERY OPERATOR DIFFERENTIAL AUTO STAT 08/12/2024 12: 34 PM CHEMICAL RECOVERY OPERATOR PHOSPHORUS Routine 08/12/2024 12:34 PM CHEMICAL RECOVERY OPERATOR COMPREHENSIVE METABOLIC PANEL STAT 08/12/2024 12:34 PM CHEMICAL RECOVERY OPERATOR CBC WITH AUTO DIFFERENTIAL STAT 08/12/2024 12:34 PM CHEMICAL RECOVERY OPERATOR PSA SCREEN Routine 05/30/2024 10:16 AM CDT Benign prostatic hyperplasia, unspecified whether lower urinary tract symptoms present CT ABDOMEN PELVIS W CONTRAST ED 12/12/2018 5:02 AM CDT from Last 3 Months or Most Recently Relevant to Health Maintenance Results * Uric acid, urine, random (08/12/2024 3:28 PM CHEMICAL RECOVERY OPERATOR) Uric acid, ur 10.6 mg/dL Comment: Interpretive Data No reference range established. Current interpretive data was last revised 2019. Urine 08/12/2024 3:28 PM CHEMICAL RECOVERY OPERATOR 08/12/2024 5:55 PM CHEMICAL RECOVERY OPERATOR us Irving Sr MD LAB URINE ORDERABLES Mary Ann rueda Result [facility] Department [place] [address] * XR Foot Right 3 or More Views (08/12/2024 1:10 PM CHEMICAL RECOVERY OPERATOR) Anatomical Region Laterality Modality Lower Extremities, Foot Right Computed Radiography 08/12/2024 1:26 PM CHEMICAL RECOVERY OPERATOR Impressions 08/12/2024 2:51 PM CHEMICAL RECOVERY OPERATOR FINDINGS/IMPRESSION:There is no acute fracture. The osseous structures are in anatomic alignment. There are degenerative changes at the 1st metatarsophalangeal joint, which may be seen in gout. Dictated by: Ferdinand Parekh M.D. The radiology attending physician has personally reviewed this study, and had reviewed and/or edited this written report and agrees with it. Electronically signed by: Jackson Russell M.D. Narrative 08/12/2024 2:51 PM CHEMICAL RECOVERY OPERATOR EXAMINATION: XR FOOT RIGHT 3 OR MORE [...] R esult * eGFR (08/12/2024 12:34 PM CHEMICAL RECOVERY OPERATOR) eGFR 63 >=60 mL/min/1. 73 m2 Comment: [...] of Race in Diagnosing Kidney Disease, JASN 2020). The CKD-EPI equation should not be used for patients with unstable renal function and has not been validated in children and those over 70. Current interpretive data was last reviewed 2021. Blood 08/12/2024 12:3 4 PM CHEMICAL RECOVERY OPERATOR 08/12/2024 12:48 PM CHEMICAL RECOVERY OPERATOR us Irving Sr MD LAB BLOOD ORDERABLES Mary Ann l Result [facility] [place] [address] * (ABNORMAL) Differential, auto (08/12/2024 12:34 PM CHEMICAL RECOVERY OPERATOR) Neutrophil abs 8.1(H) 1.5 - 6.5 K/cumm Imm gran abs 0.1 0.0 - 0.1 K/cumm [facility] Lymphocyte abs 1.5 0.8 - 3.3 K/cumm [facility] Monocyte abs 1.1(H) 0.2 - 0.8 K/cumm [facility] Eosinophil abs 0.0 0.0 - 0.5 K/cumm [facility] Basophil abs 0.0 0.0 - 0.1 K/cumm [facility] Neutrophil pct 75.0 % [facility] Comment: Interpretive Data Percent cell count reference ranges are not reported, since discordance with absolute values may lead to misinterpretation of CBC data. Current Interpretive Data was last revised on 2017. Imm gran pct 0.6 % [facility] Comment: Interpretive Data Percent cell count reference ranges are not reported, since discordance with absolute values may lead to misinterpretation of CBC data. Current Interpretive Data was last revised on 2017. Lymphocyte pct 13.8 % [facility] Comment: Interpretive Data Percent cell count reference ranges are not reported, since discordance with absolute values may lead to misinterpretation of CBC data. Current Interpretive Data was last revised on 2017. Monocyte pct 9.9 % [facility] Comment: Interpretive Data Percent cell count reference ranges are not reported, since discordance with absolute values may lead to misinterpretation of CBC data. Current Interpretive Data was last revised on 2017. Eosinophil pct 0.4 % [facility] Comment: Interpretive Data Percent cell count reference ranges are not reported, since discordance with absolute values may lead to misinterpretation of CBC data. Current Interpretive Data was last revised on 2017. Basophil pct 0.3 % [facility] Comment: Interpretive Data Percent cell count reference ranges are not reported, since discordance with absolute values may lead to misinterpretation of CBC data. Current Interpretive Data was last revised on 2017. Blood 08/12/2024 12:3 4 PM CHEMICAL RECOVERY OPERATOR 08/12/2024 12:48 PM CHEMICAL RECOVERY OPERATOR Irving Sr MD LAB BLOOD ORDERABLES Mary Ann rueda Result [facility] [place] [address] * (ABNORMAL) CBC with auto differential (08/12/2024 12:34 PM CHEMICAL RECOVERY OPERATOR) WBC 10.8(H) 3.8 - 9.9 K/cumm Hgb 15.8 13.0 - 17.5 g/dL [facility] Hct 47.4 38.9 - 50.3 % [facility] Plt 274 150 - 400 K/cumm [facility] MPV 10.0 9.1 - 12.3 fL [facility] RBC 5.25 4.30 - 5.80 M/cumm [facility] MCV 90.3 81.3 - 96.4 fL [facility] MCH 30.1 27.1 - 33.3 pg [facility] MCHC 33.3 32.3 - 35.7 g/dL [facility] RDW CV 13.2 11.1 - 14.9 % [facility] RDW SD 43.7 35.7 - 48.1 fL [facility] NRBC abs 0.00 0.00 - 0.01 K/cumm [facility] Blood 08/12/2024 12:3 4 PM CHEMICAL RECOVERY OPERATOR 08/12/2024 12:48 PM CHEMICAL RECOVERY OPERATOR Irving Sr MD LAB BLOOD ORDERABLES Mary Ann l Result Performing Organization Address [facility] Co de Phone Number [facility] [place] [address] * (ABNORMAL) Erythrocyte sedimentation rate (08/12/2024 12:34 PM CHEMICAL RECOVERY OPERATOR) Erythrocyte sedimentation rate 22(H) 1 - 20 mm/hr Blood 08/12/2024 12:3 4 PM CHEMICAL RECOVERY OPERATOR 08/12/2024 12:54 PM CHEMICAL RECOVERY OPERATOR Result [facility] Irving Sr MD LAB BLOOD ORDERABLES Mary Ann l Result Performing Organization Address [facility] Co de Phone Number [facility] [place] [address] * (ABNORMAL) CRP (acute phase) (08/12/2024 12:34 PM CHEMICAL RECOVERY OPERATOR) CRP 39.0(H) <=10.0 mg/L Blood 08/12/2024 12:3 4 PM CHEMICAL RECOVERY OPERATOR 08/12/2024 12:48 PM CHEMICAL RECOVERY OPERATOR Result [facility] Irving Sr MD LAB BLOOD ORDERABLES Mary Ann l Result Performing Organization Address [facility] Co de Phone Number [facility] [place] [address] * Uric acid (08/12/2024 12:34 PM CHEMICAL RECOVERY OPERATOR) Uric acid 6.0 3.0 - 8.0 mg/dL Blood 08/12/2024 12:3 4 PM CHEMICAL RECOVERY OPERATOR 08/12/2024 12:48 PM CHEMICAL RECOVERY OPERATOR Baljinder De Santiago MD LAB BLOOD ORDERABLES Fin al Result Performing Organization Address [facility] Co de Phone Number [facility] [place] [address] * Phosphorus (08/12/2024 12:34 PM CHEMICAL RECOVERY OPERATOR) Pathologist [facility] Phosphorus, pl 3.5 2.3 - 4.5 mg/dL Blood 08/12/2024 12:3 4 PM CHEMICAL RECOVERY OPERATOR 08/12/2024 12:48 PM CHEMICAL RECOVERY OPERATOR Irving Sr MD LAB BLOOD ORDERABLES Mary Ann marybeth Result [facility] [place] [address] * Comprehensive metabolic panel (08/12/2024 12:34 PM CHEMICAL RECOVERY OPERATOR) Pathologist [facility] Sodium 139 135 - 145 mmol/L Potassium, pl 4.3 3.3 - 4.9 mmol/L [facility] Comment:Hemolyzed; Potassium value may be falsely elevated by as much as 0.3-0.5 mmol/L. Suggest redraw and reanalysis. Chloride 101 97 - 110 mmol/L [facility] CO2 25 22 - 32 mmol/L [facility] Anion gap 13 2 - 15 mmol/L [facility] BUN 24 6 - 25 mg/dL [facility] Creatinine 1.27 0.80 - 1.30 mg/dL [facility] Glucose 95 70 - 199 mg/dL [facility] Comment: Interpretive Data Fasting glucose >/= 126 [...] classification and Diagnosis of Diabetes Diabetes Care 202; 46: S19-S40. Current interpretive data was last revised 2022. Calcium 9.6 8.5 - 10.3 mg/dL [facility] Bilirubin, total 0.5 0.1 - 1.2 mg/dL [facility] Protein, pl 8.4 6.5 - 8.5 g/dL [facility] Albumin 4.2 3.5 - 5.0 g/dL [facility] Alk phos 87 40 - 130 Units/L [facility] ALT 24 7 - 55 Units/L [facility] AST 28 10 - 50 Units/L [facility] Comment:Hemolyzed; result ma y be falsely elevated Blood 08/12/2024 12:3 4 PM CHEMICAL RECOVERY OPERATOR 08/12/2024 12:48 PM CHEMICAL RECOVERY OPERATOR Irving Sr MD LAB BLOOD ORDERABLES Mary Ann l Result [facility] [place] [address] * PSA screen (05/30/2024 10:16 AM CDT) [...] MD LAB BLOOD ORDERABLES Final R esult [facility] [place] [address] * CT Abdomen Pelvis W Contrast (12/12/2018 5:02 AM CDT) Anatomical Region Laterality Modality Body N/A Computed Tomogra phy 12/12/2018 7:50 AM CDT Impressions 12/12/2018 7:57 AM CDT 1. Thickened wall of the duodenum, suggesting duodenitis. 2. Small renal cysts. 3. Aortic atherosclerosis. 4. Mild enlargement of the prostate gland. A preliminary report was provided by [facility]. Electronically signed by: Heaven Grijalva 12/12/2018 7:57 AM CDT RESULT: HISTORY: Upper [...] gland. A preliminary report was provided by [facility]. Electronically signed by: Carlos Dang M.D. Connor Tripp MD IMG CT PROCEDURES Final Res ult from Last 3 Months or Most Recently Relevant to Health Maintenance Insurance [facility] MEDICARE MEDICARE [facility] Address: [address] [address] [place] [address] [employer] MEDICARE GOLD IDPA A[employer] MEDICARE GOLD IDPA TNA MEDICARE GOLD Care Teams Manager Of Marketing Relationship Specialty Start Date End Date Luiz Bennett MD [facility] [address] Milton WANG [address] [place] [id number] PCP - General 01/04/18 Jazmyn Boss MD [address] [facility] [address] [place] [address] Dermatology 08/23/22
--- OUTSIDE RECORDS SUMMARY | 2024-10-02 22:04 | XMS_ITS | Referral Summary ---
Author Organization [facility] Address [address] [place] [address] Care Team Providers Care Tutoring Clinician Name Role Phone Luiz Bennett MD Primary Care Provider [phone] Source Comments [facility],non-owned Affiliates and Associated Physician Practices is amultiple site organization consisting of ambulatory clinics and hospital sitesin [place], [place], [place] and [place]. This disclosure is being madepursuant to the Care Everywhere program and may not contain all information available regarding this patient. Last updated 18.[facility] Allergies Active Allergy Reactions Criticality Noted [...] surgery (although no operative report) in 2007; [place], [place]. Triple vessel coronary bypass surgery (although no operative report) in 2007; [place], [place]. Lumbago 12/02/2010 Obesity, unspecified 12/02/2010 Social History [...] 05/18/2020 8:39 AM CDT Plan of Treatment Not on file Administered Medications Care Teams Tutoring Clinician Relationship Specialty Start Date End Date Luiz Bennett MD [facility] [address] Milton WANG [address] [place] [id number] PCP - General 04/15/20
[2024-10-02 22:15] VITALS: BP 123/74; PULSE 79; RESP 14; O2SAT 100
[2024-10-02] MEDS: ACETAMINOPHEN 500 MG TABLET 1000 MG PO (23:00)
[2024-10-02 23:13] LABS: Basophils Percent Auto 0.4 % (0.2-1.2); Eosinophils Absolute Auto 0.3 K/mm3 (0-0.3); Eosinophils Percent Auto 2.8 % (0-4.4); Hematocrit 41.4 % (42.0-52.0); Hemoglobin 13.9 g/dL (14.0-18.0); Immature Granulocyte Absolute 0.08 K/mm3 (0.00-0.031); Immature Granulocyte Percent A 0.8 % (0-0.5); Lymphocytes Absolute Auto 2.13 K/mm3 (0.9-3.2); Lymphocytes Percent Auto 20.9 % (18.3-44.2); Mean Corpuscular HGB Conc 33.6 g/dl (32-36); Mean Corpuscular Hemoglobin 30.8 pg (26-34); Mean Corpuscular Volume 91.6 fl (80-100); Mean Platelet Volume 9.4 fl (7.4-10.4); Monocytes Absolute Auto 1.2 K/mm3 (0.1-0.6); Monocytes Percent Auto 11.8 % (2.6-8.5); Neutrophils Absolute Auto 6.5 K/mm3 (1.3-6.7); Neutrophils Percent Auto 63.3 % (45.5-73.1); Platelet Count Result 209 k/mm3 (150-375); Red Blood Count 4.52 M/mm3 (4.6-6.20); Red Cell Distribution Width 13.4 % (11.5-14.5); White Blood Count 10.2 K/mm3 (4.5-10.0)
[2024-10-02 23:20] LABS: Uric Acid 4.4 mg/dL (3.5-8.5)
[2024-10-02 23:23] LABS: Alanine Aminotransferase 31 U/L (6-50); Albumin Level 3.9 g/dL (3.5-5.1); Alkaline Phosphatase 70 U/L (38-126); Anion Gap 9 mmol/L (4-12); Aspartate Amino Transferase 24 U/L (17-59); Bilirubin,Total 0.4 mg/dL (0.2-1.3); Blood Urea Nitrogen 19 mg/dL (9-20); Calcium 9.3 mg/dL (8.4-10.2); Carbon Dioxide 29 mmol/L (22-30); Chloride 101 mmol/L (98-107); Estimated CRCL calculation 77 ml/min; Estimated Glomerular Filt Rate > 60; Glucose 106 mg/dL (65-110); Potassium 3.8 mmol/L (3.4-5.0); Sodium 139 mmol/L (137-145)
--- NOTE | 2024-10-02 23:25 | ED.EXTPRO ---
HPI - Extremity Problem General Chief complaint: Extremity Problem,Nontraumatic Stated complaint: gout in L hand R foot Time Seen by Provider: 10/02/24 22:49 Source: patient Mode of arrival: ambulatory Limitations: no limitations History of Present Illness HPI Narrative: This is a 64-year-old male that presents to the emergency department for a gout flare. Reports over the last 2 days he has developed pain in his left hand and right foot. The pain feels very similar to previous gout flares. He has been taking his allopurinol with little relief. He has not taken anything today for pain. Denies fevers. Related Data Allergies Allergy/AdvReac Type Severity Reaction Status Date / Time hydrochlorothiazide Allergy Rash Verified 10/02/24 22:14 Review of Systems Review of Systems: CONSTITUTIONAL: Denies fever MUSCULOSKELETAL: Reports joint pain, and myalgia. NEUROLOGIC: Denies numbness, or weakness. All systems reviewed & are unremarkable except as noted in HPI and below PMFSH Past Medical History Medical History (Updated 10/03/24 @ 00:51 by Shawna Myers PA-C) Gout Hyperlipidemia Hypertension Exam Narrative: GENERAL: Well-appearing, well-nourished, and in no acute distress. HEAD: Normocephalic, atraumatic. EYES: EOMI. CHEST: Clear to auscultation. No respiratory distress. No wheezes rales or rhonchi HEART: Regular rate and rhythm. No murmur heard. Normal peripheral pulses. EXTREMITIES: Normal range of motion. No edema or erythema. SKIN: Warm, dry, no rash. NEURO: No focal deficits. Alert and oriented x3. PSYCH: Normal mood and affect Course Course Emergency Course: Patient updated on his workup and agrees with plan of care Vital Signs Vital signs: Vital Signs Pulse Rate 79 10/02/24 22:15 Respiratory Rate 14 10/02/24 22:15 Blood Pressure 123/74 10/02/24 22:15 Pulse Oximetry 100 10/02/24 22:15 Pulse Rate 79 10/02/24 22:15 Respiratory Rate 14 10/02/24 22:15 Blood Pressure 123/74 10/02/24 22:15 Pulse Oximetry 100 10/02/24 22:15 MDM - Extremity (Nontraumatic) MDM Narrative Medical decision making narrative: Patient presents to the emergency department for gout flare in the left hand and right foot. He is afebrile and nontoxic appearing. CBC with mild leukocytosis to 10.2. ESR is mildly elevated. CRP is also mildly elevated. X-rays of the right foot show findings consistent with gout. X-rays of the left hand without acute osseous abnormalities. Patient updated on his workup and agrees with plan of care. Will be started on indomethacin and colchicine. He was given warnings to return to the ER Differential Diagnosis Differential diagnosis: Likely gout and other (osteoarthritis) Lab Data Attestation: I reviewed the patient's lab results. 10/02/24 23:04 10/02/24 23:04 Labs: Lab Results 10/02/24 Range/Units 23:04 WBC 10.2 H (4.5-10.0) K/mm3 RBC 4.52 L (4.6-6.20) M/mm3 Hgb 13.9 L (14.0-18.0) g/dL Hct 41.4 L (42.0-52.0) % MCV 91.6 (80-100) fl MCH 30.8 (26-34) pg MCHC 33.6 (32-36) g/dl RDW 13.4 (11.5-14.5) % Plt Count 209 (150-375) k/mm3 MPV 9.4 (7.4-10.4) fl Immature Gran % (Auto) 0.8 H (0-0.5) % Neut % (Auto) 63.3 (45.5-73.1) % Lymph % (Auto) 20.9 (18.3-44.2) % Marshall % (Auto) 11.8 H (2.6-8.5) % Eos % (Auto) 2.8 (0-4.4) % Baso % (Auto) 0.4 (0.2-1.2) % Lymph # (Auto) 2.13 (0.9-3.2) K/mm3 Marshall # (Auto) 1.2 H (0.1-0.6) K/mm3 Eos # (Auto) 0.3 (0-0.3) K/mm3 Baso # (Auto) 0.0 (0.0-0.1) K/mm3 Abs Immat Gran (auto) 0.08 H (0.00-0.031) K/mm3 Absolute Neuts (auto) 6.5 (1.3-6.7) K/mm3 Absolute Nucleated RBC 0.000 (0.0-0.012) K/mm3 Nucleated RBC % 0.0 (0.0-0.2) % ESR 25 H (0-20) mm/hr Sodium 139 (137-145) mmol/L Potassium 3.8 (3.4-5.0) mmol/L Chloride 101 (98-107) mmol/L Carbon Dioxide 29 (22-30) mmol/L Anion Gap 9 (4-12) mmol/L BUN 19 (9-20) mg/dL Creatinine 0.98 (0.7-1.3) mg/dL Estim Creat Clear Calc 77 ml/min Estimated GFR > 60 (59 - ) Glucose 106 (65-110) mg/dL Uric Acid 4.4 (3.5-8.5) mg/dL Calcium 9.3 (8.4-10.2) mg/dL Total Bilirubin 0.4 (0.2-1.3) mg/dL AST 24 (17-59) U/L ALT 31 (6-50) U/L Alkaline Phosphatase 70 (38-126) U/L C-Reactive Protein 1.1 (<1.0) mg/dL Total Protein 7.0 (6.3-8.2) g/dL Albumin 3.9 (3.5-5.1) g/dL Imaging Data Radiologist's impression: ITS Impressions Foot X-Ray 10/03/24 00:02 IMPRESSION: Findings suggestive of gouty arthritis within the right great toe, as detailed above. Hand X-Ray 10/03/24 00:07 IMPRESSION: No acute fracture or dislocation within the left hand, as detailed above. No discrete findings to suggest gouty arthritis, with the exception of normal bone mineralization. However, not all patient's manifest the radiographic appearance until very late stages in the disease. Clinical and serologic correlation is recommended Critical Care Time Critical Care Time Critical Care Time: No Discharge Plan Discharge Clinical Impression: Gout Qualifiers: Gout site: multiple sites Gout etiology: unspecified cause Chronicity: acute Qualified Code(s): M10.9 - Gout, unspecified Patient Disposition: Home, Self-Care Condition: Stable Instructions: Gout (ED) Additional Instructions: Return to the ER if you experience fever, redness and swelling of your extremity, or or any other symptoms that are concerning to you Rest, use ice, take Indomethacin as prescribed. Take Colchicine as prescribed Follow up with your primary care doctor Patient Language: Indian Prescriptions: New colchicine 0.6 mg tablet 0.6 mg PO DAILY 7 Days Qty: 7 0RF indomethacin 50 mg capsule 50 mg PO TID 5 Days Qty: 15 0RF Rx Instructions: administer with food or milk No Action benzonatate 200 mg capsule 200 mg PO TID PRN (Reason: cough) Qty: 21 0RF albuterol sulfate 90 mcg/actuation HFA aerosol inhaler 2 puff inhalation QID PRN (Reason: shortness of breath or wheezing) Qty: 8.5 0RF prednisone 20 mg tablet 40 mg PO DAILY 5 Days Qty: 10 0RF pantoprazole 40 mg tablet,delayed release (DR/EC) 40 mg PO BID Qty: 28 0RF ondansetron 4 mg tablet,disintegrating 4 mg PO Q6H PRN (Reason: nausea and vomiting) Qty: 10 0RF Follow-up/Referrals: UNKNOWN,DOCTOR [Primary Care Provider] -
--- OUTSIDE RECORDS SUMMARY | 2024-10-02 23:31 | XMS_ITS | Patient Health Summary ---
Author Organization [facility] Address [address] [place] [address] Care Team Providers Care Oil And Gas Specialist Name Role Phone Luiz Bennett MD Primary Care Provider [phone] Note from [facility],non-owned Affiliates and Associated Physician Practices is amultiple site organization consisting of ambulatory clinics and hospital sitesin [place], [place], [place] and [place]. This disclosure is being madepursuant to the Care Everywhere program and may not contain all information available regarding this patient. Last updated 18.[facility] Allergies * Aminacrine(Anaphylaxis,Other) -High Criticality * [...] for Screening examination for pulmonary tuberculosis * VT CHMSRG MOHS MG TQ H/N/H/F/G 1ST STAG 5 BLOC(Performed 05/18/2020) Performed for Squamous cell carcinoma of scalp * VT REPR CMPL WND SCALP,EXTR 2.6-7.5(Performed 05/18/2020) Performed for Squamous cell carcinoma of scalp * DERMPATH SLIDE CONSULT(Performed 04/21/2020) Results * SKIN TEST PPD - POINT OF CARE (09/03/2020 9:15 AM TOW TRUCK DISPATCHER) PPD negative [facility] Comment:no induration Other MISCELLANEOUS SAMPLE S / Unknown 09/03/2020 9:15 AM TOW TRUCK DISPATCHER Kate Benitez [facility] - POINT O F CARE ORDERABLES [facility] [id number] [phone] * VT REPR CMPL WND SCALP,EXTR 2.6-7.5, VT CHMSRG MOHS MG TQ H/N/H/F/G 1ST STAG [...] The excised tissue was transported to the [facility] histology laboratory maintaining the tissue orientation. The [...] Reconstruction: Complex Closure Primary Surgeon : Gera Legal Activity Adjudicator Surgeon : The patient was taken to [...] performed the entire procedure. Jazmyn Boss MD Librarian Assistant Jazmyn Boss MD PROCEDURE/MINOR SURG ICAL ORDERABLES * DERMPATH SLIDE CONSULT (04/21/2020 12:00 AM CDT) Case Report Dermatopathology Report Case: [id number] Authorizing Provider: Jazmyn Boss MD Collected: 04/21/2020 12:00 AM Ordering Location: [facility] DermPath Lab Received: 04/21/2020 03:57 PM Pathologist: Suha Morfin MD Specimen: Slide(s), Mid occipital scalp, OSC# [id number] 0 2:40 PM CDT DERMATOPATHOLOGY LABORATORY Final Diagnosis Specimen A. Slide(s), Mid occipital scalp, OSC# [id number]: SQUAMOUS CELL CARCINOMA, WELL DIFFERENTIATED (C44.42) PRESENT AT MARGIN 0 2:40 PM CDT DERMATOPATHOLOGY LABORATORY Clinical History Materials received from: [address] [place] [address] Received for Mohs [place] are 1 (H&E) slide(s) labeled [id number]. Atypical endophytic/verrucou s Squamous proliferation most consistent with the surface of a well differentiated Squamous cell carcinoma; extending to the deep margin. All slides returned. Appointment Date: 04/15/2020 Any additional sections, special stains or immunohistochemical stains performed by our laboratory will be kept here on file. 0 2:40 PM CDT DERMATOPATHOLOGY LABORATORY Microscopic Description Specimen A. Slide(s), Mid occipital scalp, OSC# [id number]: Arising in the epidermis and extending into [...] characteristic determined by the Dermatopathology Laboratory at [facility], directed by Dr. Hadley Ohara. These tests need not be, and therefore are not, approved by the [place] Food and Drug Administration. The tests are used for clinical purposes. Billing Codes Specimen Charges Stain Charges 55259 1 39851 90079 1 1 0 2:40 PM CDT DERMATOPATHOLOGY LABORATORY Embedded Images 0 2:40 PM CDT DERMATOPATHOLOGY LABORATORY Pathology/Cytolog y SLIDE / Unknown 04/21/2020 04/21/2020 3:57 PM CDT Jazmyn Boss MD LAB - PATHOLOGY/CYTO LOGY ORDERABLES DERMATOPATHOLOGY LABORATORY [facility] - Department of Dermatology [place] [id number] [facility], 3rd Floor [address] [phone] Care Teams Oil And Gas Specialist Relationship Specialty Start Date End Date Luiz Bennett MD [facility] [address] Milton WANG [address] [place] [id number] PCP - General 04/15/20
--- OUTSIDE RECORDS SUMMARY | 2024-10-02 23:31 | XMS_ITS | Referral Summary ---
Author Organization [facility] Clinical [facility] Address [address] [place] [phone] Care Team Providers Care Statistician Theoretical Name Role Phone Luiz Bennett MD Primary Care Provider [phone] Jazmyn Boss MD Unavailable [phone] Encounters Date Type Department Care Team Description 09/20/[address] [phone] Luiz Bennett MD URI 08/12/2024 11:54 AM EXERCISE INSTRUCTOR - 08/12/2024 3:50 PM [facility] Emergency [facility] Emergency Department [address] [place] [phone] Baljinder De Santiago MD Right foot pain (Primary Dx); Acute idiopathic gout of right foot Discharge Disposition: Discharge to home or self care 08/09/2024 Orders Only [address] [phone] Luiz Bennett MD Idiopathic gout, unspecified chronicity, unspecified site from Last 3 Months Allergies Active Allergy Reactions Criticality Noted Date Comments Aminacrine Anaphylaxis High 12/02/2010 Numbness of mouth cheek and arms Hydralazine Unknown 12/27/2020 Hydrochlorothiazide Unknown,Swelling Medium 07/03/2013 Medications ipratropium-albuterol (COMBIVENT RESPIMAT) 20-100 mcg/actuation inhalerIndications: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 Lumbago 12/02/2010 Obesity, unspecified 12/02/2010 Benign [...] on file Legal Sex Male 11:30 PM EXERCISE INSTRUCTOR Gender Identity Not on file Sexual Orientation Not on file Last Filed Vital Signs Vital Sign Reading Time Taken Comments Blood Pressure 106/58 08/12/2024 3:45 PM EXERCISE INSTRUCTOR Pulse 68 08/12/2024 3:45 PM EXERCISE INSTRUCTOR Temperature 36.6 C (97.9 F) 08/12/2024 11:49 AM EXERCISE INSTRUCTOR Respiratory Rate 16 08/12/2024 3:45 PM EXERCISE INSTRUCTOR Oxygen Saturation 98% 08/12/2024 3:45 PM EXERCISE INSTRUCTOR Inhaled Oxygen Concentration - - Weight 99.3 kg (218 lb 14.4 oz) 05/30/2024 9:10 AM CDT Height 172.7 cm (5' 8 ) 05/30/2024 9:10 AM CDT Body Mass Index 33.28 05/30/2024 9:10 AM CDT Plan of Treatment Not on file Procedures Procedure Name Priority Date/Time Associated Diagnosis Comments URIC ACID, URINE, RANDOM STAT 08/12/2024 3:28 PM EXERCISE INSTRUCTOR XR FOOT RIGHT 3 OR MORE VIEWS ED 08/12/2024 1:10 PM EXERCISE INSTRUCTOR URIC ACID STAT 08/12/2024 12:34 PM EXERCISE INSTRUCTOR CRP (ACUTE PHASE) STAT 08/12/2024 12: 34 PM EXERCISE INSTRUCTOR ERYTHROCYTE SEDIMENTATION RATE STAT 08/12/2024 12:34 PM EXERCISE INSTRUCTOR EGFR STAT 08/12/2024 12:34 PM EXERCISE INSTRUCTOR DIFFERENTIAL AUTO STAT 08/12/2024 12: 34 PM EXERCISE INSTRUCTOR PHOSPHORUS Routine 08/12/2024 12:34 PM EXERCISE INSTRUCTOR COMPREHENSIVE METABOLIC PANEL STAT 08/12/2024 12:34 PM EXERCISE INSTRUCTOR CBC WITH AUTO DIFFERENTIAL STAT 08/12/2024 12:34 PM EXERCISE INSTRUCTOR PSA SCREEN Routine 05/30/2024 10:16 AM CDT Benign prostatic hyperplasia, unspecified whether lower urinary tract symptoms present CT ABDOMEN PELVIS W CONTRAST ED 12/12/2018 5:02 AM CDT from Last 3 Months or Most Recently Relevant to Health Maintenance Results * Uric acid, urine, random (08/12/2024 3:28 PM EXERCISE INSTRUCTOR) Uric acid, ur 10.6 mg/dL Comment: Interpretive Data No reference range established. Current interpretive data was last revised 2019. Urine 08/12/2024 3:28 PM EXERCISE INSTRUCTOR 08/12/2024 5:55 PM EXERCISE INSTRUCTOR us Irving Sr MD LAB URINE ORDERABLES Mary Ann rueda Result [facility] Department [place] [address] * XR Foot Right 3 or More Views (08/12/2024 1:10 PM EXERCISE INSTRUCTOR) Anatomical Region Laterality Modality Lower Extremities, Foot Right Computed Radiography 08/12/2024 1:26 PM EXERCISE INSTRUCTOR Impressions 08/12/2024 2:51 PM EXERCISE INSTRUCTOR FINDINGS/IMPRESSION:There is no acute fracture. The osseous structures are in anatomic alignment. There are degenerative changes at the 1st metatarsophalangeal joint, which may be seen in gout. Dictated by: Ferdinand Parekh M.D. The radiology attending physician has personally reviewed this study, and had reviewed and/or edited this written report and agrees with it. Electronically signed by: Jackson Russell M.D. Narrative 08/12/2024 2:51 PM EXERCISE INSTRUCTOR EXAMINATION: XR FOOT RIGHT 3 OR MORE [...] and agrees with it. Electronically signed by: aJckson Russell M.D. Irving Sr MD IMG XR PROCEDURES Final R esult * eGFR (08/12/2024 12:34 PM EXERCISE INSTRUCTOR) eGFR 63 >=60 mL/min/1. 73 m2 Comment: [...] reviewed 2021. Blood 08/12/2024 12:3 4 PM EXERCISE INSTRUCTOR 08/12/2024 12:48 PM EXERCISE INSTRUCTOR us Irving Sr MD LAB BLOOD ORDERABLES Mary Ann marybeth Result [facility] Department [place] [address] * (ABNORMAL) Differential, auto (08/12/2024 12:34 PM EXERCISE INSTRUCTOR) Neutrophil abs 8.1(H) 1.5 - 6.5 K/cumm Imm gran abs 0.1 0.0 - 0.1 K/cumm [facility] Lymphocyte abs 1.5 0.8 - 3.3 K/cumm [facility] Monocyte abs 1.1(H) 0.2 - 0.8 K/cumm [facility] Eosinophil abs 0.0 0.0 - 0.5 K/cumm [facility] Basophil abs 0.0 0.0 - 0.1 K/cumm [facility] Neutrophil pct 75.0 % [facility] Comment: Interpretive Data Percent cell count reference ranges are not reported, since discordance with absolute values may lead to misinterpretation of CBC data. Current Interpretive Data was last revised on 2017. Imm gran pct 0.6 % [facility] Comment: Interpretive Data Percent cell count reference ranges are not reported, since discordance with absolute values may lead to misinterpretation of CBC data. Current Interpretive Data was last revised on 2017. Lymphocyte pct 13.8 % [facility] Comment: Interpretive Data Percent cell count reference ranges are not reported, since discordance with absolute values may lead to misinterpretation of CBC data. Current Interpretive Data was last revised on 2017. Monocyte pct 9.9 % [facility] Comment: Interpretive Data Percent cell count reference ranges are not reported, since discordance with absolute values may lead to misinterpretation of CBC data. Current Interpretive Data was last revised on 2017. Eosinophil pct 0.4 % [facility] Comment: Interpretive Data Percent cell count reference ranges are not reported, since discordance with absolute values may lead to misinterpretation of CBC data. Current Interpretive Data was last revised on 2017. Basophil pct 0.3 % [facility] Comment: Interpretive Data Percent cell count reference ranges are not reported, since discordance with absolute values may lead to misinterpretation of CBC data. Current Interpretive Data was last revised on 2017. Blood 08/12/2024 12:3 4 PM EXERCISE INSTRUCTOR 08/12/2024 12:48 PM EXERCISE INSTRUCTOR Irving Sr MD LAB BLOOD ORDERABLES Mary Ann rueda Result [facility] [place] [address] * (ABNORMAL) CBC with auto differential (08/12/2024 12:34 PM EXERCISE INSTRUCTOR) WBC 10.8(H) 3.8 - 9.9 K/cumm Hgb 15.8 13.0 - 17.5 g/dL [facility] Hct 47.4 38.9 - 50.3 % [facility] Plt 274 150 - 400 K/cumm [facility] MPV 10.0 9.1 - 12.3 fL [facility] RBC 5.25 4.30 - 5.80 M/cumm [facility] MCV 90.3 81.3 - 96.4 fL [facility] MCH 30.1 27.1 - 33.3 pg [facility] MCHC 33.3 32.3 - 35.7 g/dL [facility] RDW CV 13.2 11.1 - 14.9 % [facility] RDW SD 43.7 35.7 - 48.1 fL [facility] NRBC abs 0.00 0.00 - 0.01 K/cumm [facility] Blood 08/12/2024 12:3 4 PM EXERCISE INSTRUCTOR 08/12/2024 12:48 PM EXERCISE INSTRUCTOR Result [facility] Irving Sr MD LAB BLOOD ORDERABLES Mary Ann l Result Performing Organization Address City/[facility] Co de Phone Number [facility] [place] [address] * (ABNORMAL) Erythrocyte sedimentation rate (08/12/2024 12:34 PM EXERCISE INSTRUCTOR) Erythrocyte sedimentation rate 22(H) 1 - 20 mm/hr Blood 08/12/2024 12:3 4 PM EXERCISE INSTRUCTOR 08/12/2024 12:54 PM EXERCISE INSTRUCTOR Result [facility] Irving Sr MD LAB BLOOD ORDERABLES Mary Ann l Result Performing Organization Address [facility] Co de Phone Number [facility] [place] [address] * (ABNORMAL) CRP (acute phase) (08/12/2024 12:34 PM EXERCISE INSTRUCTOR) CRP 39.0(H) <=10.0 mg/L Blood 08/12/2024 12:3 4 PM EXERCISE INSTRUCTOR 08/12/2024 12:48 PM EXERCISE INSTRUCTOR Result [facility] Irving Sr MD LAB BLOOD ORDERABLES Mary Ann l Result Performing Organization Address City/[facility]/ZIP Co de Phone Number [facility] [place] [address] * Uric acid (08/12/2024 12:34 PM EXERCISE INSTRUCTOR) [facility] Uric acid 6.0 3.0 - 8.0 mg/dL Blood 08/12/2024 12:3 4 PM EXERCISE INSTRUCTOR 08/12/2024 12:48 PM EXERCISE INSTRUCTOR Baljinder De Santiago MD LAB BLOOD ORDERABLES Fin al Result Performing Organization Address City/[facility]/ZIP Co de Phone Number [facility] Department [place] [address] * Phosphorus (08/12/2024 12:34 PM EXERCISE INSTRUCTOR) [facility] Phosphorus, pl 3.5 2.3 - 4.5 mg/dL Blood 08/12/2024 12:3 4 PM EXERCISE INSTRUCTOR 08/12/2024 12:48 PM EXERCISE INSTRUCTOR Irving Sr MD LAB BLOOD ORDERABLES Mary Ann l Result Performing Organization Address [facility] de Phone Number [facility] Department [place] [address] * Comprehensive metabolic panel (08/12/2024 12:34 PM EXERCISE INSTRUCTOR) [facility] Sodium 139 135 - 145 mmol/L Potassium, pl 4.3 3.3 - 4.9 mmol/L [facility] Comment:Hemolyzed; Potassium value may be falsely elevated by as much as 0.3-0.5 mmol/L. Suggest redraw and reanalysis. Chloride 101 97 - 110 mmol/L [facility] CO2 25 22 - 32 mmol/L [facility] Anion gap 13 2 - 15 mmol/L [facility] BUN 24 6 - 25 mg/dL [facility] Creatinine 1.27 0.80 - 1.30 mg/dL [facility] Glucose 95 70 - 199 mg/dL [facility] Comment: Interpretive Data Fasting glucose >/= 126 [...] Calcium 9.6 8.5 - 10.3 mg/dL [facility] Bilirubin, total 0.5 0.1 - 1.2 mg/dL [facility] Protein, pl 8.4 6.5 - 8.5 g/dL [facility] Albumin 4.2 3.5 - 5.0 g/dL [facility] Alk phos 87 40 - 130 Units/L [facility] ALT 24 7 - 55 Units/L [facility] AST 28 10 - 50 Units/L [facility] Comment:Hemolyzed; result ma y be falsely elevated Blood 08/12/2024 12:3 4 PM EXERCISE INSTRUCTOR 08/12/2024 12:48 PM EXERCISE INSTRUCTOR us Irving Sr MD LAB BLOOD ORDERABLES Mary Ann rueda Result [facility] [place] [address] * PSA screen (05/30/2024 10:16 AM CDT) [...] ORDERABLES Final R esult [facility] [place] [address] * CT Abdomen Pelvis W Contrast (12/12/2018 5:02 AM CDT) Anatomical Region Laterality Modality Body N/A Computed Tomogra phy 12/12/2018 7:50 AM CDT Impressions 12/12/2018 7:57 AM CDT 1. Thickened wall of the duodenum, suggesting duodenitis. 2. Small renal cysts. 3. Aortic atherosclerosis. 4. Mild enlargement of the prostate gland. A preliminary report was provided by [facility]. Electronically signed by: Carlos Dang [...] gland. A preliminary report was provided by [facility]. Electronically signed by: Carlos Dang M.D. Connor Tripp MD IMG CT PROCEDURES Final Res ult from Last 3 Months or Most Recently Relevant to Health Maintenance Insurance [facility] MEDICARE [facility] Address: [address] [address] [place] [address] MEDICARE [facility] Address: [address] [address] [place] [address] [employer] MEDICARE GOLD [facility] AETNA MEDICARE GOLD [employer] MEDICARE GOLD Care Teams Statistician Theoretical Relationship Specialty Start Date End Date Luiz Bennett MD [facility] [place] [address] PCP - General 01/04/18 Jazmyn Boss MD [address] [place] [address] Dermatology 08/23/22
--- OUTSIDE RECORDS SUMMARY | 2024-10-02 23:31 | XMS_ITS | Encounter Summary ---
Author Organization [facility] Address [address] [place] [address] Care Team Providers Care Facilities Manager Name Role Phone Luiz Bennett MD Primary Care Provider [phone] Encounter Details Date Type Department Care Team (Late st Contact Info) Description 04/21/2020 Lab Requisition [facility] [address] [facility] [place] [address] Jazmyn Boss MD [address] [facility] [address] DEPT OF DERMATOLOGY [place], [place] [id number] Social History Tobacco Use Types Packs/Day Years [...] AM CDT) Case Report Dermatopathology Report Case: [id number] Authorizing Provider: Jazmyn Boss MD Collected: 04/21/2020 12:00 AM Ordering Location: [facility] Lab Received: 04/21/2020 03:57 PM Pathologist: Suha Morfin MD Specimen: Slide(s), Mid occipital scalp, OSC# [id number] 0 2:40 PM CDT DERMATOPATHOLOGY LABORATORY Final Diagnosis Specimen A. Slide(s), Mid occipital scalp, OSC# [id number]: SQUAMOUS CELL CARCINOMA, WELL DIFFERENTIATED (C44.42) PRESENT AT MARGIN 0 2:40 PM CDT DERMATOPATHOLOGY LABORATORY Clinical History Materials received from: [facility] [address] [place] [address], [place] [address] Received for Mohs [place] are 1 (H&E) slide(s) labeled [id number]. Atypical endophytic/verrucou s Squamous proliferation most consistent with the surface of a well differentiated Squamous cell carcinoma; extending to the deep margin. All slides returned. Appointment Date: 04/15/2020 Any additional sections, special stains or immunohistochemical stains performed by our laboratory will be kept here on file. 0 2:40 PM CDT DERMATOPATHOLOGY LABORATORY Microscopic Description Specimen A. Slide(s), Mid occipital scalp, OSC# [id number]: Arising in the epidermis and extending into [...] characteristic determined by the Dermatopathology Laboratory at [facility], directed by Dr. Hadley Ohara. These tests need not be, and therefore are not, approved by the [place] Food and Drug Administration. The tests are used for clinical purposes. Billing Codes Specimen Charges Stain Charges 60632 1 [id number] [id number] 1 1 0 2:40 PM CDT DERMATOPATHOLOGY LABORATORY Embedded Images 0 2:40 PM CDT DERMATOPATHOLOGY LABORATORY Pathology/Cytolog y SLIDE / Unknown 04/21/2020 04/21/2020 3:57 PM CDT Jazmyn Boss MD LAB - PATHOLOGY/CYTO LOGY ORDERABLES DERMATOPATHOLOGY LABORATORY [facility] - Department of Dermatology [address], [address] [phone] documented in this encounter Visit Diagnoses Not on filedocumented in this encounter Care Teams Facilities Manager Relationship Specialty Start Date End Date Luiz Bennett MD [address] [place] [address] DR [address] [address] PCP - General 04/15/20 documented as of this encounter
--- OUTSIDE RECORDS SUMMARY | 2024-10-02 23:31 | XMS_ITS | Clinical Summary ---
Author Organization [facility] Address [address] [place] [address] Care Team Providers Care Fruit Or Nut Farm Worker Name Role Phone Luiz Bennett MD Primary Care Provider [phone] Jazmyn Boss MD Unavailable [phone] Allergies Active Allergy Reactions Criticality Noted Date Comments Aminacrine Anaphylaxis High 12/02/2010 Numbness of mouth cheek and arms Hydralazine Unknown 12/27/2020 Hydrochlorothiazide Unknown,Swelling Medium 07/03/2013 Medications ipratropium-albuterol (COMBIVENT RESPIMAT) 20-100 mcg/actuation inhalerIndications:Laminating Machine Feeder garry Obstructive Pulmonary Disease with Bronchospasms INHALE 1 PUFF EVERY 4 TO 6 HOURS NEEDED 01/05/20 18 Active FLUARIX QUAD [id number], PF, 60 mcg (15 mcg x 4)/0.5 [...] surgery (although no operative report) in 2007; [facility], [place], [place]. Lumbago 12/02/2010 Obesity, unspecified 12/02/2010 Benign essential hypertension 12/02/2010 Encounters Date Type Department Care Team Description 09/20/[address] [place] [address] Luiz Bennett MD URI 08/12/2024 11:54 AM DIE MAKER APPRENTICE - 08/12/2024 3:50 PM DIE MAKER APPRENTICE Emergency [facility] Emergency Department [address] [place] [address] Baljinder De Santiago MD Right foot pain (Primary Dx); Acute idiopathic gout of right foot Discharge Disposition: Discharge to home or self care 08/09/2024 Orders Only [address] [place] [address] Luzi Bennett MD Idiopathic gout, unspecified chronicity, unspecified [...] 11/14/2020,10/17/2020 Surgical History Surgery Date Site/Laterality Comments [place] CORONARY ARTERY BYPASS 1 CORONARY VENOUS GRAFT CABG - (Added by TW Conv) [place] EXPLORATORY LAPAROTOMY CELIOTOMY W/WO BIOPSY SPX Exploratory [...] on file Legal Sex Male 11:30 PM DIE MAKER APPRENTICE Gender Identity Not on file Sexual Orientation Not on file Obstetrics History Last Filed Vital Signs Vital Sign Reading Time Taken Comments Blood Pressure 106/58 08/12/2024 3:45 PM DIE MAKER APPRENTICE Pulse 68 08/12/2024 3:45 PM DIE MAKER APPRENTICE Temperature 36.6 C (97.9 F) 08/12/2024 11:49 AM DIE MAKER APPRENTICE Respiratory Rate 16 08/12/2024 3:45 PM DIE MAKER APPRENTICE Oxygen Saturation 98% 08/12/2024 3:45 PM DIE MAKER APPRENTICE Inhaled Oxygen Concentration - - Weight 99.3 [...] ACID, URINE, RANDOM STAT 08/12/2024 3:28 PM DIE MAKER APPRENTICE XR FOOT RIGHT 3 OR MORE VIEWS ED 08/12/2024 1:10 PM DIE MAKER APPRENTICE URIC ACID STAT 08/12/2024 12:34 PM DIE MAKER APPRENTICE CRP (ACUTE PHASE) STAT 08/12/2024 12: 34 PM DIE MAKER APPRENTICE ERYTHROCYTE SEDIMENTATION RATE STAT 08/12/2024 12:34 PM DIE MAKER APPRENTICE EGFR STAT 08/12/2024 12:34 PM DIE MAKER APPRENTICE DIFFERENTIAL AUTO STAT 08/12/2024 12: 34 PM DIE MAKER APPRENTICE PHOSPHORUS Routine 08/12/2024 12:34 PM DIE MAKER APPRENTICE COMPREHENSIVE METABOLIC PANEL STAT 08/12/2024 12:34 PM DIE MAKER APPRENTICE CBC WITH AUTO DIFFERENTIAL STAT 08/12/2024 12:34 PM DIE MAKER APPRENTICE PSA SCREEN Routine 05/30/2024 10:16 AM CDT Benign prostatic hyperplasia, unspecified whether lower urinary tract symptoms present CT ABDOMEN PELVIS W CONTRAST ED 12/12/2018 5:02 AM CDT from Last 3 Months or Most Recently Relevant to Health Maintenance Results * Uric acid, urine, random (08/12/2024 3:28 PM DIE MAKER APPRENTICE) Uric acid, ur 10.6 mg/dL Comment: Interpretive Data No reference range established. Current interpretive data was last revised 2019. Urine 08/12/2024 3:28 PM DIE MAKER APPRENTICE 08/12/2024 5:55 PM DIE MAKER APPRENTICE us Irving Sr MD LAB URINE ORDERABLES Mary Ann rueda Result [facility] [address] [facility] [address] Department [place] [address] * XR Foot Right 3 or More Views (08/12/2024 1:10 PM DIE MAKER APPRENTICE) Anatomical Region Laterality Modality Lower Extremities, Foot Right Computed Radiography 08/12/2024 1:26 PM DIE MAKER APPRENTICE Impressions 08/12/2024 2:51 PM DIE MAKER APPRENTICE FINDINGS/IMPRESSION:There is no acute fracture. The osseous structures are in anatomic alignment. There are degenerative changes at the 1st metatarsophalangeal joint, which may be seen in gout. Dictated by: Ferdinand Parekh M.D. The radiology attending physician has personally reviewed this study, and had reviewed and/or edited this written report and agrees with it. Electronically signed by: Jackson Russell M.D. Narrative 08/12/2024 2:51 PM DIE MAKER APPRENTICE EXAMINATION: XR FOOT RIGHT 3 OR MORE [...] R esult * eGFR (08/12/2024 12:34 PM DIE MAKER APPRENTICE) eGFR 63 >=60 mL/min/1. 73 m2 Comment: [...] reviewed 2021. Blood 08/12/2024 12:3 4 PM DIE MAKER APPRENTICE 08/12/2024 12:48 PM DIE MAKER APPRENTICE us Irving Sr MD LAB BLOOD ORDERABLES Mary Ann l Result [facility] [address] [facility] [address] Department [place] [address] * (ABNORMAL) Differential, auto (08/12/2024 12:34 PM DIE MAKER APPRENTICE) Neutrophil abs 8.1(H) 1.5 - 6.5 K/cumm Imm gran abs 0.1 0.0 - 0.1 K/cumm [facility] Lymphocyte abs 1.5 0.8 - 3.3 K/cumm [facility] Monocyte abs 1.1(H) 0.2 - 0.8 K/cumm [facility] Eosinophil abs 0.0 0.0 - 0.5 K/cumm [facility] Basophil abs 0.0 0.0 - 0.1 K/cumm [facility] Neutrophil pct 75.0 % [facility] Comment: Interpretive Data Percent cell count reference ranges are not reported, since discordance with absolute values may lead to misinterpretation of CBC data. Current Interpretive Data was last revised on 2017. Imm gran pct 0.6 % [facility] Comment: Interpretive Data Percent cell count reference ranges are not reported, since discordance with absolute values may lead to misinterpretation of CBC data. Current Interpretive Data was last revised on 2017. Lymphocyte pct 13.8 % [facility] Comment: Interpretive Data Percent cell count reference ranges are not reported, since discordance with absolute values may lead to misinterpretation of CBC data. Current Interpretive Data was last revised on 2017. Monocyte pct 9.9 % [facility] Comment: Interpretive Data Percent cell count reference ranges are not reported, since discordance with absolute values may lead to misinterpretation of CBC data. Current Interpretive Data was last revised on 2017. Eosinophil pct 0.4 % [facility] Comment: Interpretive Data Percent cell count reference ranges are not reported, since discordance with absolute values may lead to misinterpretation of CBC data. Current Interpretive Data was last revised on 2017. Basophil pct 0.3 % [facility] Comment: Interpretive Data Percent cell count reference ranges are not reported, since discordance with absolute values may lead to misinterpretation of CBC data. Current Interpretive Data was last revised on 2017. Blood 08/12/2024 12:3 4 PM DIE MAKER APPRENTICE 08/12/2024 12:48 PM DIE MAKER APPRENTICE Irving Sr MD LAB BLOOD ORDERABLES Mary Ann rueda Result [facility] [address] [facility] [address] Department [place] [address] * (ABNORMAL) CBC with auto differential (08/12/2024 12:34 PM DIE MAKER APPRENTICE) WBC 10.8(H) 3.8 - 9.9 K/cumm Hgb 15.8 13.0 - 17.5 g/dL [facility] Hct 47.4 38.9 - 50.3 % [facility] Plt 274 150 - 400 K/cumm [facility] MPV 10.0 9.1 - 12.3 fL [facility] RBC 5.25 4.30 - 5.80 M/cumm [facility] MCV 90.3 81.3 - 96.4 fL [facility] MCH 30.1 27.1 - 33.3 pg [facility] MCHC 33.3 32.3 - 35.7 g/dL [facility] RDW CV 13.2 11.1 - 14.9 % [facility] RDW SD 43.7 35.7 - 48.1 fL [facility] NRBC abs 0.00 0.00 - 0.01 K/cumm [facility] Blood 08/12/2024 12:3 4 PM DIE MAKER APPRENTICE 08/12/2024 12:48 PM DIE MAKER APPRENTICE Irving Sr MD LAB BLOOD ORDERABLES Mary Ann l Result Performing Organization Address [facility] Co de Phone Number [facility] [employer] [place] [address] * (ABNORMAL) Erythrocyte sedimentation rate (08/12/2024 12:34 PM DIE MAKER APPRENTICE) Erythrocyte sedimentation rate 22(H) 1 - 20 mm/hr Blood 08/12/2024 12:3 4 PM DIE MAKER APPRENTICE 08/12/2024 12:54 PM DIE MAKER APPRENTICE Result [facility] Irving Sr MD LAB BLOOD ORDERABLES Mary Ann l Result Performing Organization Address [facility] Co de Phone Number [facility] [employer] [place] [address] * (ABNORMAL) CRP (acute phase) (08/12/2024 12:34 PM DIE MAKER APPRENTICE) CRP 39.0(H) <=10.0 mg/L Blood 08/12/2024 12:3 4 PM DIE MAKER APPRENTICE 08/12/2024 12:48 PM DIE MAKER APPRENTICE Result [facility] Irving Sr MD LAB BLOOD ORDERABLES Mary Ann l Result Performing Organization Address [facility] Co de Phone Number [facility] [employer] [place] [address] * Uric acid (08/12/2024 12:34 PM DIE MAKER APPRENTICE) Uric acid 6.0 3.0 - 8.0 mg/dL Blood 08/12/2024 12:3 4 PM DIE MAKER APPRENTICE 08/12/2024 12:48 PM DIE MAKER APPRENTICE Baljinder De Santiago MD LAB BLOOD ORDERABLES Fin al Result Performing Organization Address [facility] Co de Phone Number [facility] [employer] [place] [address] * Phosphorus (08/12/2024 12:34 PM DIE MAKER APPRENTICE) Pathologist [facility] Phosphorus, pl 3.5 2.3 - 4.5 mg/dL Blood 08/12/2024 12:3 4 PM DIE MAKER APPRENTICE 08/12/2024 12:48 PM DIE MAKER APPRENTICE Irving Sr MD LAB BLOOD ORDERABLES Mary Ann marybeth Result [facility] [address] [facility] Department [place] [address] * Comprehensive metabolic panel (08/12/2024 12:34 PM DIE MAKER APPRENTICE) Pathologist [facility] Sodium 139 135 - 145 mmol/L Potassium, pl 4.3 3.3 - 4.9 mmol/L [facility] Comment:Hemolyzed; Potassium value may be falsely elevated by as much as 0.3-0.5 mmol/L. Suggest redraw and reanalysis. Chloride 101 97 - 110 mmol/L [facility] CO2 25 22 - 32 mmol/L [facility] Anion gap 13 2 - 15 mmol/L [facility] BUN 24 6 - 25 mg/dL [facility] Creatinine 1.27 0.80 - 1.30 mg/dL [facility] Glucose 95 70 - 199 mg/dL [facility] Comment: Interpretive Data Fasting glucose >/= [...] 2022. Calcium 9.6 8.5 - 10.3 mg/dL [facility] Bilirubin, total 0.5 0.1 - 1.2 mg/dL [facility] Protein, pl 8.4 6.5 - 8.5 g/dL [facility] Albumin 4.2 3.5 - 5.0 g/dL [facility] Alk phos 87 40 - 130 Units/L [facility] ALT 24 7 - 55 Units/L [facility] AST 28 10 - 50 Units/L [facility] Comment:Hemolyzed; result ma y be falsely elevated Blood 08/12/2024 12:3 4 PM DIE MAKER APPRENTICE 08/12/2024 12:48 PM DIE MAKER APPRENTICE Irving Sr MD LAB BLOOD ORDERABLES Mary Ann l Result [facility] Department [place] [address] * PSA screen (05/30/2024 10:16 AM CDT) [...] MD LAB BLOOD ORDERABLES Final R esult [facility] Department [place] [address] * CT Abdomen Pelvis W Contrast (12/12/2018 5:02 AM CDT) Anatomical Region Laterality Modality Body N/A Computed Tomogra phy 12/12/2018 7:50 AM CDT Impressions 12/12/2018 7:57 AM CDT 1. Thickened wall of the duodenum, suggesting duodenitis. 2. Small renal cysts. 3. Aortic atherosclerosis. 4. Mild enlargement of the prostate gland. A preliminary report was provided by [facility]. Electronically signed by: Heaven Grijalva 12/12/2018 7:57 [...] gland. A preliminary report was provided by [facility]. Electronically signed by: Carlos Dang M.D. Connor Tripp MD IMG CT PROCEDURES Final Res ult from Last 3 Months or Most Recently Relevant to Health Maintenance Insurance [facility] MEDICARE MEDICARE AETNA MEDICARE GOLD IDPA AETNA MEDICARE GOLD IDPA TNA MEDICARE GOLD Care Teams Fruit Or Nut Farm Worker Relationship Specialty Start Date End Date Luiz Bennett MD [facility] [address] Milton WANG [address] [place] [id number] PCP - General 01/04/18 Jazmyn Boss MD [address] [facility] [address] [place] [address] Dermatology 08/23/22
--- OUTSIDE RECORDS SUMMARY | 2024-10-02 23:31 | XMS_ITS | Referral Summary ---
Author Organization [facility] Address [address] [place] [address] Care Team Providers Care Denitrator Operator Name Role Phone Luiz Bennett MD Primary Care Provider [phone] Source Comments [facility],non-owned Affiliates and Associated Physician Practices is amultiple site organization consisting of ambulatory clinics and hospital sitesin [place], [place], [place] and [place]. This disclosure is being madepursuant to the Care Everywhere program and may not contain all information available regarding this patient. Last updated 18.[facility] Allergies Active Allergy Reactions Criticality Noted Date [...] surgery (although no operative report) in 2007; [place], [place]. Triple vessel coronary bypass surgery (although no operative report) in 2007; [place], [place]. Lumbago 12/02/2010 Obesity, unspecified 12/02/2010 Social [...] Not on file Administered Medications Care Teams Denitrator Operator Relationship Specialty Start Date End Date Luiz Bennett MD [facility] [address] Milton WANG [address] [place] [id number] PCP - General 04/15/20
--- OUTSIDE RECORDS SUMMARY | 2024-10-02 23:31 | XMS_ITS | Clinical Summary ---
Author Organization [facility] Address [address] [place] [address] Care Team Providers Care Chemical Educator Name Role Phone Unavailable Primary Care Provider [...] taking abruptly. 18 Tablet 09/13/2024 11:17 AM TELEPHONE ORDER SUPERVISOR 5 09/22/19 25 Hospital, Clinic, or Other [...] STL ABSTRACTION Provider, Abstract 09/13/2024 9:50 AM TELEPHONE ORDER SUPERVISOR Ancillary Procedure [facility] Orth[facility] Surgery at the [facility] [address] [place] [address] Nallely Johnson PA Injury of right knee, initial encounter 09/13/2024 9:30 AM TELEPHONE ORDER SUPERVISOR Office Visit [facility] Orth[facility] Surgery at the [place] [address] [place] [address] Nallely Johnson PA Other secondary acute gout of right knee (Primary Dx); Injury of right knee, initial encounter; Knee effusion, right from Last 3 Months Social History Tobacco Use Types Packs/Day Years Used Date Smoking Tobacco: Never Assessed Sex and Gender Information Value Date Recorded Sex Assigned at Not on file Legal Sex Male 8:48 AM TELEPHONE ORDER SUPERVISOR Gender Identity Not on file Sexual Orientation [...] VW RIGHT Routine 09/13/2024 1 0:07 AM TELEPHONE ORDER SUPERVISOR Injury of right knee, initial encounter IN ARTHROCENTESIS ASPIR&/INJ MAJOR JT/BURSA W/O US Routine 09/13/2024 9:30 AM TELEPHONE ORDER SUPERVISOR Other secondary acute gout of right knee Knee effusion, right from Last 3 Months Results * XR KNEE 4+ VW RIGHT (09/13/2024 10:07 AM TELEPHONE ORDER SUPERVISOR) Anatomical Region Laterality Modality Lower Extremity Computed Radiogr aphy 09/13/2024 10:0 7 AM TELEPHONE ORDER SUPERVISOR Impressions 09/13/2024 2:08 PM TELEPHONE ORDER SUPERVISOR IMPRESSION: 1. Right knee joint effusion. No fracture identified. DICTATION LOCATION: Location 4 Narrative 09/13/2024 2:08 PM TELEPHONE ORDER SUPERVISOR EXAMINATION: XR KNEE 4+ VW RIGHT HISTORY: [...] [facility] ORDERABLES Final Result * IN ARTHROCENTESIS ASPIR&/INJ MAJOR JT/BURSA W/O US (09/13/2024 9:30 AM TELEPHONE ORDER SUPERVISOR) Narrative Nallely Johnson PA - 09/13/2024 9:30 AM TELEPHONE ORDER SUPERVISOR Nallely Johnson PA 09/13/2024 10:36 AM Large Joint Drain/Inject Date/Time: 09/13/2024 9:30 AM Authorized by: Nallely Johnson PA Performed by: Nallely Johnson PA Consent given by: patient Site marked: site marked Timeout: Immediately prior to procedure a time out was called to verify the correct patient, procedure, equipment, customer support assistant and site/side marked as required Supporting Documentation [...]
--- OUTSIDE RECORDS SUMMARY | 2024-10-02 23:31 | XMS_ITS | Clinical Summary ---
Author Organization [facility] Address [address] [place] [address] Care Team Providers Care Lending Manager Name Role Phone Luiz Bennett MD Primary Care Provider [phone] Source Comments [facility],non-owned Affiliates and Associated Physician Practices is amultiple site organization consisting of ambulatory clinics and hospital sitesin [place], [place], [place] and [place]. This disclosure is being madepursuant to the Care Everywhere program and may not contain all information available regarding this patient. Last updated 18.[facility] Allergies Active Allergy Reactions Criticality Noted [...] surgery (although no operative report) in 2007; [place], [place]. Triple vessel coronary bypass surgery (although no operative report) in 2007; [place], [place]. Lumbago 12/02/2010 Obesity, unspecified 12/02/2010 Family [...] age to complete this topic Care Teams Lending Manager Relationship Specialty Start Date End Date Luiz Bennett MD [facility] [address] Rose KATHLEEN [address] [place] [id number] PCP - General 04/15/20
[2024-10-02] MEDS: INDOMETHACIN 25 MG CAPSULE 50 MG PO (23:37)
[2024-10-02 23:46] LABS: Erythrocyte Sedimentation Rate 25 mm/hr (0-20)
[2024-10-02 23:47] LABS: CRP 1.1 mg/dL (<1.0)
[2024-10-03] MEDS: COLCHICINE 0.6 MG TABLET 1.2 MG PO (00:03)
[2024-10-03] MEDS: oxyCODONE HCL (*CRX) 5 MG TAB IR PO (00:10)
[2024-10-03] MEDS: COLCHICINE 0.6 MG TABLET PO (00:57)
[2024-10-03 01:00] VITALS: BP 152/92; PULSE 59; RESP 15; TEMP 36.8; O2SAT 97
== END 2024-10-03 01:09 | disposition home or self-care (01) ==
PROVIDERS: Emergency Provider Physician Assistant
DX: M10.9 Gout, unspecified (principal); E78.5 Hyperlipidemia, unspecified; I10 Essential (primary) hypertension
CPT/HCPCS: 36415; 73130; 73630; 80053; 84550; 85025; 85652; 86140; 99284; A9270